=== PATIENT | male | born 1940 | race Caucasian/White ===

== ENCOUNTER 2016-08-29 07:40 | Inpatient (IN) | payer MEDICARE, BC ==
[~2016-08-29] VITALS: Ht 177.8 cm; Wt 90.5 kg
[2016-08-29] VITALS (12 sets, daily range): BP systolic 110–155; BP diastolic 56–80; PULSE 52–79; RESP 16–20; TEMP 97.6–98.5; O2SAT 95–100
[~2016-08-29 07:40] MED LIST: DABI150 PO; DOXA1 PO; GLIP5 PO; LISI-366 PO; METF1000 PO; METO50TA11 PO; PRAV40TA2 PO
[2016-08-29] MEDS ORDERED: SODIUM CHLOR 0.9% 1000 ML INJ 1,000 ML IV ONE (07:48)
--- NOTE | 2016-08-29 07:51 | PD ---
HPI Chief Complaint: Flank/Kidney Pain Time Seen by Provider: 07:48 Travel History International Travel<30 days: No Contact w/Intl Traveler<30days: No Traveled to known affect area: No History of Present Illness HPI ACUTE ONSET OF RT FLANK PAIN/RUQ PAIN, [place], 10/28, ASSOC WITH N/V, DENIES FEVER...RECENT PLACEMENT OF LLQ PERITONEAL DIALYSIS, TO START HOME DIALYSIS FAIRLY SOON, PER PT HE IS NO LONGER ACTIVELY ON PRADAXA, DENIES ANY HEMATURIA/ HEMATOCHEZIA/ NO DISCOLORATION TO STOOL PFSH Past Medical History Hx Anticoagulant Therapy: Yes (COUMADIN) Atrial Fibrillation: Yes Heart Rhythm Problems: Yes (AFIB RVR) Cancer: No Cardiovascular Problems: Yes (ABLATION, A. FIB, HTN, CHOL) High Cholesterol: Yes Chest Pain: No Congestive Heart Failure: No Cerebrovascular Accident: Yes Diabetes: Yes Endocrine: Yes Gastrointestinal Disorders: No Genitourinary: No Hypertension: Yes Immune Disorder: No Musculoskeletal: No Neurologic: Yes Psychiatric: No Reproductive: No Respiratory: No Migraines: No Seizures: No Thyroid Disease: No Past Surgical History Abdominal Surgery: No Cardiac Surgery: Yes (CABG 2 BYPASS 13 YEARS ) Coronary Artery Bypass Graft: Yes (double bypass) Ear Surgery: No Endocrine Surgery: No Eye Surgery: Yes (BILATERAL CATARACT ) Genitourinary Surgery: No Gynecologic Surgery: No Oral Surgery: No Pacemaker: No Thoracic Surgery: No Social History Alcohol Use: Yes (occas) Tobacco Use: Yes (cigars) Substance Use: No Allergies-Medications (Allergen,Severity, Reaction): Coded Allergies: No Known Allergies (Unverified , 08/29/16) Reported Meds & Prescriptions Reported Meds & Active Scripts Active Reported Doxazosin (Doxazosin Mesylate) 4 Mg Tab 4 Mg PO DAILY Pravastatin 40 Mg Tab 40 Mg PO DAILY Glipizide 5 Mg Tab 5 Mg PO BIDAC Take 30 minutes before a meal Metoprolol Tartrate 50 Mg Tab 50 Mg PO BID Review of Systems Except as stated in HPI: all other systems reviewed are Neg Genitourinary: Positive: Hematuria, Flank Pain Physical Exam Narrative GENERAL: SKIN: Warm and dry. HEAD: Atraumatic. Normocephalic. EYES: Pupils equal and round. No scleral icterus. No injection or drainage. ENT: No nasal bleeding or discharge. Mucous membranes pink and moist. NECK: Trachea midline. No JVD. CARDIOVASCULAR: Regular rate and rhythm. RESPIRATORY: No accessory muscle use. Clear to auscultation. Breath sounds equal bilaterally. GASTROINTESTINAL: Abdomen soft, RUQ/RLQ TTP MILDLY WITHOUT REBOUND/GUARDING/ RIGIDITY, nondistended. MUSCULOSKELETAL: Extremities without clubbing, cyanosis, or edema. No obvious deformities. NEUROLOGICAL: Awake and alert. No obvious cranial nerve deficits. Motor grossly within normal limits. Five out of 5 muscle strength in the arms and legs. Normal speech. PSYCHIATRIC: Appropriate mood and affect; insight and judgment normal. Data Data Last Documented VS Vital Signs Date Time Temp Pulse Resp B/P Pulse Ox O2 Delivery O2 Flow Rate FiO2 08/29/16 11:32 63 08/29/16 11:32 16 135/60 96 Room Air 08/29/16 07:44 97.6 Orders Complete Blood Count With Diff (08/29/16 07:48) Comprehensive Metabolic Panel (08/29/16 07:48) Urinalysis - C+S If Indicated (08/29/16 07:48) Ct Abd/Pel W/O Iv Contrast (08/29/16 07:48) Ecg Monitoring (08/29/16 07:48) Iv Access Insert/Monitor (08/29/16 07:48) Ketorolac Inj (Toradol Inj) (08/29/16 08:00) Ondansetron Inj (Zofran Inj) (08/29/16 08:00) Sodium Chloride 0.9% Flush (Ns Flush) (08/29/16 08:00) Sodium Chlor 0.9% 1000 Ml Inj (Ns 1000 M (08/29/16 07:48) Hydromorphone Pf Inj (Dilaudid Pf Inj) (08/29/16 08:00) Lipase (08/29/16 07:48) Prothrombin Time / Inr (Pt) (08/29/16 09:08) Act Partial Throm Time (Ptt) (08/29/16 09:08) Ct Abd/Pel W Iv Contrast(Rout) (08/29/16 09:08) Iodixanol 320 Inj (Rad Ct) (Visipaque 32 (08/29/16 09:50) ^ Lab Follow Up (08/29/16 10:27) Phytonadione Inj (Vitamin K Inj) (08/29/16 10:30) Prothrombin Complex Conc Inj (Kcentra In (08/29/16 11:00) Potassium, Serum (K) (08/29/16 13:39) Insulin Human Regular Inj (Novolin R Inj (08/29/16 10:45) Dextrose 50% In Jose (Vial) Inj (D50w (Vi (08/29/16 10:45) Sodium Bicarbonate 8.4% Inj (Sodium Bica (08/29/16 10:45) Albuterol Concentrated Neb (Albuterol Co (08/29/16 10:45) Act Partial Throm Time (Ptt) (08/29/16 12:00) Prothrombin Time / Inr (Pt) (08/29/16 12:00) Labs Laboratory Tests Test 08/29/16 08/29/16 08/29/16 08:07 08:45 10:27 White Blood Count 3.7 TH/MM3 Red Blood Count 3.02 MIL/MM3 Hemoglobin 9.0 GM/DL Hematocrit 27.7 % Mean Corpuscular Volume 91.8 FL Mean Corpuscular Hemoglobin 29.8 PG Mean Corpuscular Hemoglobin 32.5 % Concent Red Cell Distribution Width 17.2 % Platelet Count 78 TH/MM3 Mean Platelet Volume 8.7 FL Neutrophils (%) (Auto) 74.4 % Lymphocytes (%) (Auto) 13.2 % Monocytes (%) (Auto) 8.9 % Eosinophils (%) (Auto) 2.7 % Basophils (%) (Auto) 0.8 % Neutrophils # (Auto) 2.8 TH/MM3 Lymphocytes # (Auto) 0.5 TH/MM3 Monocytes # (Auto) 0.3 TH/MM3 Eosinophils # (Auto) 0.1 TH/MM3 Basophils # (Auto) 0.0 TH/MM3 CBC Comment AUTO DIFF Differential Comment AUTO DIFF CONFIRMED Platelet Estimate LOW Platelet Morphology Comment NORMAL Sodium Level 143 MEQ/L Potassium Level 5.6 MEQ/L Chloride Level 113 MEQ/L Carbon Dioxide Level 19.2 MEQ/L Anion Gap 11 MEQ/L Blood Urea Nitrogen 111 MG/DL Creatinine 4.40 MG/DL Estimat Glomerular Filtration 13 ML/MIN Rate Random Glucose 154 MG/DL Calcium Level 8.2 MG/DL Total Bilirubin 0.6 MG/DL Aspartate Amino Transf 39 U/L (AST/SGOT) Alanine Aminotransferase 31 U/L (ALT/SGPT) Alkaline Phosphatase 100 U/L Total Protein 6.0 GM/DL Albumin 2.8 GM/DL Lipase 496 U/L Prothrombin Time 27.7 SEC Prothromb Time International 2.4 RATIO Ratio Activated Partial 35.0 SEC Thromboplast Time Urine Collection Type CLEAN CATCH Urine Color YELLOW Urine Turbidity CLEAR Urine pH 5.5 Urine Specific [place] 1.021 Urine Protein 300 OR GREATER mg/dL Urine Glucose (UA) 100 mg/dL Urine Ketones NEG mg/dL Urine Occult Blood SMALL Urine Nitrite NEG Urine Bilirubin NEG Urine Leukocyte Esterase TRACE Urine RBC 0-3 /hpf Urine WBC 0-2 /hpf Urine Squamous Epithelial 0-5 /hpf Cells Microscopic Urinalysis Comment CULT NOT INDICATED Urine Collection Time 10:27 [facility] Medical Decision Making Medical Screen Exam Complete: Yes Emergency Medical Condition: Yes Medical Record Reviewed: Yes Differential Diagnosis PYELO VS UTI VS KIDNEY STONE V AAA VS GB DZ Narrative Course PATIENT'S CAT SCAN REVEALED AN ABNL RIGHT KIDNEY, POSSIBLE INTRACAPSULAR RENAL HEMORRHAGE? RADIOLOGIST REQUESTED CT WITH CONTRAST, ONE WAS ORDERED AND ALSO ADDED PI/INR/PTT STUDIES DESPITE FACT THAT PER PATIENT HE IS NO LONG ANTICOAGULATED TO SEE IF ITS RELATED. Critical Care Narrative CRITICAL CARE NOTE: With evaluation of the patient, labs, EKG, receipt of radiologic studies, administration of medications, reevaluation the patient and discussion of the patient with the admitting physicians, the total critical care time was [60] minutes. Time to perform other separately billable procedures was not included in the critical care time. Physician Communication Physician Communication D/W DR GREEN TO MAKE AWARE, HE WILL FOLLOW. D/W DR VICTORIA WHO ACCEPTS ADMISSION BUT [place] [facility] [place] Primary Impression: RT RENAL HEMORRHAGE Additional Impressions: S/P HYPERKALEMIA MEDICAL TREATMENT S/P COUMADIN REVERSAL Admitting Information Admitting Physician Requests: Admit Condition: Stable Philip Brewer MD Aug 29, 2016 07:51
[2016-08-29] MEDS ORDERED: GLIP5TAB8 PO (07:59)
[2016-08-29] MEDS ORDERED: METO50TA PO (07:59)
[2016-08-29] MEDS ORDERED: ONDANSETRON HCL 4 MG/2 ML VIAL IVP ONE (08:00)
[2016-08-29] MEDS ORDERED: PRAV40TA2 PO (08:00)
[2016-08-29] MEDS ORDERED: HYDROmorphone HCL PF 1 MG/ML VIAL IVS ONE (08:00)
[2016-08-29] MEDS ORDERED: SODIUM CHLORIDE 0.9% FLUSH 10 ML FLUSH IVF PRN (08:00)
[2016-08-29] MEDS ORDERED: DOXA1TAB34 PO (08:00)
[2016-08-29] MEDS ORDERED: KETOROLAC TROMETHAMINE 30 MG/ML (IVP) VIAL IVP ONE (08:00)
[2016-08-29 08:14] LABS: AUTOMATED NEUTROPHIL # 2.8 TH/MM3 (1.8-7.7); BASOPHIL % 0.8 % (0.0-2.0); EOSINOPHIL # 0.1 TH/MM3 (0-0.4); EOSINOPHIL % 2.7 % (0.0-4.0); HEMATOCRIT 27.7 % (39.0-51.0); LYMPH % 13.2 % (9.0-44.0); LYMPHOCYTE # 0.5 TH/MM3 (1.0-4.8); MEAN CELL VOLUME 91.8 FL (80.0-100.0); MEAN CORPUSCULAR HEMOGLOBIN 29.8 PG (27.0-34.0); MEAN CORPUSCULAR HGB CONC 32.5 % (32.0-36.0); MONO % 8.9 % (0.0-8.0); NEUT % 74.4 % (16.0-70.0); PLATELET COUNT 78 TH/MM3 (150-450); RED BLOOD COUNT 3.02 MIL/MM3 (4.50-5.90); RED CELL DISTRIBUTION WIDTH 17.2 % (11.6-17.2); WHITE BLOOD COUNT 3.7 TH/MM3 (4.0-11.0)
[2016-08-29 08:15] LABS: HEMO FLAGS AUTO DIFF
[2016-08-29 08:21] LABS: CHLORIDE 113 MEQ/L (98-107); POTASSIUM 5.6 MEQ/L (3.5-5.1); SODIUM (NA) 143 MEQ/L (136-145)
[2016-08-29 08:26] LABS: ANION GAP 11 MEQ/L (5-15); BICARBONATE 19.2 MEQ/L (21.0-32.0); BLOOD UREA NITROGEN 111 MG/DL (7-18)
[2016-08-29 08:29] LABS: ALT (GPT) 31 U/L (12-78); AST (GOT) 39 U/L (15-37); GLOMERULAR FILTRATION RATE 13 ML/MIN (>89)
[2016-08-29 08:31] LABS: TOTAL BILIRUBIN ADULT 0.6 MG/DL (0.2-1.0)
[2016-08-29 08:32] LABS: ALKALINE PHOSPHATASE 100 U/L (45-117)
[2016-08-29 08:52] LABS: PLATELET ESTIMATE SMEAR LOW (NORMAL); PLATELET MORPHOLOGY NORMAL (NORMAL); SCAN/DIFF AUTO DIFF CONFIRMED
--- NOTE | 2016-08-29 09:06 | RADRPT ---
EXAM DATE/TIME: 08/29/2016 08:29 [facility] COMPARISON: No previous studies available for comparison. INDICATIONS : Sudden onset severe right flank pain with no known injury. ORAL CONTRAST: No oral contrast ingested. RADIATION DOSE: 23.26 CTDIvol (mGy) MEDICAL HISTORY : Hypertension. Diabetes SURGICAL HISTORY : Peritoneal dialysis catheter placement approx. 1 month ago ENCOUNTER: Initial ACUITY: 1 day PAIN SCALE: 7/10 LOCATION: Right flank TECHNIQUE: Volumetric scanning of the abdomen and pelvis was performed. Using automated exposure control and ad justment of the mA and/or kV according to patient size, radiation dose was kept as low as reasonably achievable to obtain optimal diagnostic quality images. DICOM format image data is available electro nically for review and comparison. FINDINGS: The limited portion of lung base visualized demonstrate COPD changes but are otherwise clear. Imaging through the abdomen demonstrates a grossly abnormal appearance of the right kidney. The right kidney is enlarged with heterogeneous density throughout. There are inflammatory changes around the right kidney. The findings would suggest a large intracapsular renal hemorrhage. No stones are seen. There is no hydronephrosis. The appearance of the liver, spleen, pancreas and adrenal glands is within normal limits. Examination of the left kidney demonstrates multiple simple cysts. There is no hydronephrosis. The abdominal aorta is normal in caliber. There is no retroperitoneal adenopathy. The visualized loops of small and large bowel are unremarkable. Note is made of a pain cough catheter within the pelvis. There is no free fluid within the pelvis. No iliac or inguinal adenopathy is seen. The visualized bony structures are grossly intact. CONCLUSION: 1. Abnormal appearance of the right kidney. The exam would suggest a large intracapsular renal hemorr lauro with extensive inflammatory changes around the right kidney. Contrast enhanced imaging to exclud e active hemorrhage would be a benefit. 2. Incidental takeoff catheter in the pelvis. 3. Multiple simple cysts within the left kidney. Tristan Belcher MD on August 29, 2016 at 9:00 Board Certified Radiologist. This report was verified electronically.
[2016-08-29 09:32] LABS: INTERNATIONAL NORMALIZED RATIO 2.4 RATIO; PROTHROMBIN TIME - PATIENT 27.7 SEC (9.8-11.6)
[2016-08-29] MEDS ORDERED: IODIXANOL 320 MG/ML 10 ML VIAL (for Rad CT) IV ONE (09:50)
--- NOTE | 2016-08-29 10:10 | RADRPT ---
EXAM DATE/TIME: 08/29/2016 09:23 [facility] COMPARISON: CT ABDOMEN & PELVIS W/O CONTRAST, August 29, 2016, 8:29. INDICATIONS : Renal abnormality on previous unenhanced CT abdomen/pelvis. IV CONTRAST: 75 cc Visipaque (iodixanol) IV ORAL CONTRAST: No oral contrast ingested. RADIATION DOSE: 16.58 CTDIvol (mGy) MEDICAL HISTORY : Hypertension. Diabetes SURGICAL HISTORY : CABG Peritoneal dialysis catheter placement approx. 1 month ago ENCOUNTER: Initial ACUITY: 1 day PAIN SCALE: 7/10 LOCATION: Right flank TECHNIQUE: Volumetric scanning of the abdomen and pelvis was performed. Using automated exposure control and ad justment of the mA and/or kV according to patient size, radiation dose was kept as low as reasonably achievable to obtain optimal diagnostic quality images. DICOM format image data is available electro nically for review and comparison. FINDINGS: CT Abdomen: The right kidney is basically replaced with abnormal mixed densities areas probably exten sive hemorrhage with extensive infiltration of the perinephric fat planes and maximum AP diameter mauro sures 12.1 cm in size. There is contrast pulling in the right lower pole representing active extravas ation. The liver, spleen, pancreas, adrenals are unremarkable. There are multiple exophytic cyst comi ng off the left kidney the largest measures 3.9 cm in size. There is no evidence for any appreciable pathological adenopathy, free fluid, or bowel obstruction. Chronic vascular calcifications are prese nt involving the aorta, iliac arteries without any significant stenosis or aneurysmal dilatations for technique. CT pelvis: There is no evidence for mass, abscess formation, or any significant adenopathy within the pelvis. The prostate gland is inhomogeneous and measures 4.5 x 4.5 cm in AP and transverse diameters and nonspecific. There is slight fluid in the cul-de-sac elevated to Tenckhoff catheter. CONCLUSION: Normal renal tissue is not identified on the right side and the right kidney is basic ally replaced with mixed density material probably hemorrhage with active extravasation in the right lower pole and perinephric infiltration also mostly representing hemorrhage. It is very difficult to exclude underlying malignancy either as a solid mass or infiltrating malignancy at this time. Rogers Gunn MD on August 29, 2016 at 9:59 Board Certified Radiologist. This report was verified electronically.
[2016-08-29] MEDS ORDERED: PHYTONADIONE INJ 10 MG in SODIUM CHLORIDE 0.9% INJ 50 ML IV ONE (10:30)
[2016-08-29] MEDS ORDERED: DEXTROSE 50% IN WATER 50 ML VIAL(D50) IV PUSH ONE (10:45)
[2016-08-29] MEDS ORDERED: INSULIN HUMAN REGULAR 1,000 UNITS/10 ML VIAL IV PUSH ONE (10:45)
[2016-08-29] MEDS ORDERED: RESP: ALBUTEROL CONC 2.5 MG/0.5 ML NEB INH ONE (10:45)
[2016-08-29] MEDS ORDERED: SODIUM BICARBONATE 8.4% SOLN 50 MEQ/50 ML VIAL SLOW IVP ONE (10:45)
[2016-08-29 10:47] LABS: BLOOD, URINE SMALL (NEG); GLUCOSE,URINE 100 mg/dL (NEG); KETONE, URINE NEG (NEG); NITRITE,URINE NEG (NEG); PH, URINE 5.5 (5.0-8.5)
[2016-08-29 10:57] LABS: COMMENT (UR) CULT NOT INDICATED; CULTURE IF INDICATED CULT NOT INDICATED; METHOD OF COLLECTION CLEAN CATCH; RBC, URINE 0-3 /hpf (0-3); SQUAMOUS EPITHELIAL CELL URINE 0-5 /hpf (0-5); URINE COLOR YELLOW (YELLW/STRAW); WBC, URINE 0-2 /hpf (0-5)
[2016-08-29] MEDS ORDERED: PROTHROMBIN COMPLEX CONC INJ 2,000 UNITS in SYRINGE/BAG 1 EA IV ONE (11:00)
[2016-08-29] MEDS ORDERED: MAGNESIUM HYDROXIDE SUSP 30 ML CUP PO PRN (12:15)
[2016-08-29] MEDS ORDERED: BISACODYL 10 MG SUPP RECTAL PRN (12:15)
[2016-08-29] MEDS ORDERED: ONDANSETRON HCL 4 MG/2 ML VIAL IVP PRN (12:15)
[2016-08-29] MEDS ORDERED: LACTULOSE SYRUP 20 GM/30 ML CUP PO PRN (12:15)
[2016-08-29] MEDS ORDERED: SODIUM CHLORIDE 0.9% FLUSH 10 ML FLUSH IV FLUSH PRN ×2 (12:15→20:30)
[2016-08-29] MEDS ORDERED: ACETAMINOPHEN 325 MG TAB PO PRN ×2 (12:15→20:30)
[2016-08-29] MEDS ORDERED: SENNOSIDES 8.6 MG TAB PO PRN (12:15)
--- NOTE | 2016-08-29 12:22 | HHI.HP ---
[facility] Azam Stanley MD Admission Diagnosis RT RENAL HEMORRHAGE, S/P COUMADIN REVERSAL, S/P HYPERKALEMIA TREAT Diagnoses: Chief Complaint: right flank pain Travel History International Travel<30 Days: No Contact w/Intl Traveler <30 Da: No Traveled to Known Affected Are: No History of Present Illness 76 yo male with PMH of HTN, Afib on coumadin. HLD came to the ED for evaluation of right flank pain , sharp radiating to hid buttocks getting worse . 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 Movement and deep inspiration worsened the pain .Pain is improved with meds given in the ED. Denies any cp, sob, palpitations , n/v/d/c associated. No hematuria , no urinary complaints. 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 He has PD catheter in his left lower. No overt bleeding. Review of Systems Except as stated in HPI: all other systems reviewed are Neg Past Family Social History Past Medical History Hypertension Diabetes Hyperlipidemia CAD-status post CABG 15 years ago Atrial fibrillation-status post Maze procedure ~16 years ago. Had at least 6 times of cardioversion, and rhythm control medications prior to this. On coumadin as anticoagulation. ESRD in the process to [place] [facility] follows with Dr Villa BPH Past Surgical History CABG Maze procedure Coronary angiograms Cataract surgery Reported Medications Reported Meds & Active Scripts Active Reported Doxazosin (Doxazosin Mesylate) 4 Mg Tab 4 Mg PO DAILY Pravastatin 40 Mg Tab 40 Mg PO DAILY Glipizide 5 Mg Tab 5 Mg PO BIDAC Take 30 minutes before a meal Metoprolol Tartrate 50 Mg Tab 50 Mg PO BID Allergies: Coded Allergies: No Known Allergies (Unverified , 08/29/16) Family History Both parents had CHF. Heart problems runs in his family Social History Denies smoking cigarettes/drug abuse/alcohol abuse. Smoke cigars occasionally however quit 2 month ago. Physical Exam Vital Signs Vital Signs Date Time Temp Pulse Resp B/P Pulse Ox O2 Delivery O2 Flow Rate FiO2 08/29/16 11:32 63 08/29/16 11:32 63 16 135/60 96 Room Air 08/29/16 10:03 60 16 115/56 100 Room Air 08/29/16 10:03 16 08/29/16 08:50 55 16 110/62 96 Room Air 08/29/16 08:50 55 08/29/16 07:50 60 16 08/29/16 07:44 97.6 57 16 155/68 98 Physical Exam GENERAL: This is a very pleasant 76 yo male, well-nourished, well-developed patient, in no apparent distress. SKIN: No rashes, ecchymoses or lesions. Cool and dry. HEAD: Atraumatic. Normocephalic. No temporal or scalp tenderness. EYES: Pupils equal round and reactive. Extraocular motions intact. No scleral icterus. No injection or drainage. ENT: Nose without bleeding, purulent drainage or septal hematoma. Throat without erythema, tonsillar hypertrophy or exudate. Uvula midline. Airway patent. NECK: Trachea midline. No JVD or lymphadenopathy. Supple, nontender, no meningeal signs. CARDIOVASCULAR: Regular rate and rhythm without murmurs, gallops, or rubs. RESPIRATORY: Clear to auscultation. Breath sounds equal bilaterally. No wheezes , rales, or rhonchi. GASTROINTESTINAL: Abdomen soft, tender right midlateral abdomen with palpation no rebound. Tenderness right flank. Abdomen is nondistended. No guarding. MUSCULOSKELETAL: Extremities without clubbing, cyanosis, or edema. No joint tenderness, effusion, or edema noted. No calf tenderness. Negative Homans sign bilaterally. NEUROLOGICAL: Awake and alert. Cranial nerves II through XII intact. Motor and sensory grossly within normal limits. Five out of 5 muscle strength in all muscle groups. Normal speech. Laboratory Laboratory Tests Test 08/29/16 08/29/16 08/29/16 08:07 08:45 10:27 White Blood Count 3.7 Red Blood Count 3.02 Hemoglobin 9.0 Hematocrit 27.7 Mean Corpuscular Volume 91.8 Mean Corpuscular Hemoglobin 29.8 Mean Corpuscular Hemoglobin 32.5 Concent Red Cell Distribution Width 17.2 Platelet Count 78 Mean Platelet Volume 8.7 Neutrophils (%) (Auto) 74.4 Lymphocytes (%) (Auto) 13.2 Monocytes (%) (Auto) 8.9 Eosinophils (%) (Auto) 2.7 Basophils (%) (Auto) 0.8 Neutrophils # (Auto) 2.8 Lymphocytes # (Auto) 0.5 Monocytes # (Auto) 0.3 Eosinophils # (Auto) 0.1 Basophils # (Auto) 0.0 CBC Comment AUTO DIFF Differential Comment AUTO DIFF CONFIRMED Platelet Estimate LOW Platelet Morphology Comment NORMAL Sodium Level 143 Potassium Level 5.6 Chloride Level 113 Carbon Dioxide Level 19.2 Anion Gap 11 Blood Urea Nitrogen 111 Creatinine 4.40 Estimat Glomerular Filtration 13 Rate Random Glucose 154 Calcium Level 8.2 Total Bilirubin 0.6 Aspartate Amino Transf 39 (AST/SGOT) Alanine Aminotransferase 31 (ALT/SGPT) Alkaline Phosphatase 100 Total Protein 6.0 Albumin 2.8 Lipase 496 Prothrombin Time 27.7 Prothromb Time International 2.4 Ratio Activated Partial 35.0 Thromboplast Time Urine Collection Type CLEAN CATCH Urine Color YELLOW Urine Turbidity CLEAR Urine pH 5.5 Urine Specific [place] 1.021 Urine Protein 300 OR GREATER Urine Glucose (UA) 100 Urine Ketones NEG Urine Occult Blood SMALL Urine Nitrite NEG Urine Bilirubin NEG Urine Leukocyte Esterase TRACE Urine RBC 0-3 Urine WBC 0-2 Urine Squamous Epithelial 0-5 Cells Microscopic Urinalysis Comment CULT NOT INDICATED Urine Collection Time 10:27 Result Diagram: 08/29/16 0807 08/29/16 0807 Imaging Last Impressions Abdomen/Pelvis CT 08/29/16 0908 Signed Impressions: Service Date/Time: Monday, August 29, 2016 09:23 - CONCLUSION: Normal renal tissue is not identified on the right side and the right kidney is basically replaced with mixed density material probably hemorrhage with active extravasation in the right lower pole and perinephric infiltration also mostly representing hemorrhage. It is very difficult to exclude underlying malignancy either as a solid mass or infiltrating malignancy at this time. Rogers Gunn MD Assessment and Plan Assessment and Plan 76 yo male with Right flank pain 2/[address] right kidney hemorrhage encapsulated. CT with contrast reviewed and findings discussed with ED physician : Normal renal tissue is not identified on the right side and the right kidney is basically replaced with mixed density material probably hemorrhage with active extravasation in the right lower pole and perinephric infiltration also mostly representing hemorrhage. It is very difficult to exclude underlying malignancy either as a solid mass or infiltrating malignancy at this time. Atrial fibrillation-status post Maze procedure ~16 years ago. Had at least 6 times of cardioversion, and rhythm control medications prior to this. On coumadin as anticoagulation. Patient took coumadin on the day of admission. Hold coumadin. Received vit K and prothrombin Monitor INR. Dr Villalobos was consulted urology Will have patient admitted to [facility] as patient might deteriorate ESRD in the process to get PD started follows with Dr Allen mei. Will consult Dr Allen mei. Patient has PD placed but is intraining for PD at this time. Hypertension,Diabetes, Hyperlipidemia, CAD-status post CABG 15 years ago, BPH. Stable continue home meds as appropriate. DVT ppx scd/teds. CI chemo ppx as patient with renal hematoma at this time. Discussed Condition With patient, nurse, ED physician Physician Certification 2 Midnight Certification Type: Admission for Inpatient Services Order for Inpatient Services The services are ordered in accordance with Medicare regulations or non- Medicare payer requirements, as applicable. In the case of services not specified as inpatient-only, they are appropriately provided as inpatient services in accordance with the 2-midnight benchmark. Estimated LOS (days): 3 days is the estimated time the patient will need to remain in the hospital, assuming treatment plan goals are met and no additional complications. Post-Hospital Plan: Not yet determined Aminah Wild MD Aug 29, 2016 12:22
[2016-08-29] MEDS ORDERED: hydrALAZINE HCL 10 MG TAB PO PRN (12:30)
[2016-08-29] MEDS ORDERED: hydrALAZINE HCL 20 MG/ML VIAL IV PUSH PRN (12:30)
[2016-08-29 12:32] LABS: APTT (PATIENT) 29.3 SEC (24.3-30.1); INTERNATIONAL NORMALIZED RATIO 1.3 RATIO; PROTHROMBIN TIME - PATIENT 15.1 SEC (9.8-11.6)
[2016-08-29] MEDS ORDERED: HYDROmorphone HCL PF 1 MG/ML VIAL IV PUSH PRN ×2 (14:30)
[2016-08-29] MEDS ORDERED: ACETAMINOPHEN/HYDROcodone 325 MG/5 MG TAB PO PRN (14:30)
--- NOTE | 2016-08-29 19:43 | PD.CONS ---
HPI Service Nephrology Consult Requested By Dr. Wild Reason for Consult ESRD Primary Care Physician Azam Stanley MD History of Present Illness 76-year-old of white male with end-stage renal disease, diabetes, hypertension, coronary artery disease status post CABG who had been admitted as he was having increasing right flank pain a CT suggested hemorrhage on the right side a second CT with contrast the showed active hemorrhage in the right kidney lower pole and possibility of a mass urology has been consulted. Patient states that he has been getting trained to do peritoneal dialysis. She denies any chest pain shortness of breath he states his urine output has declined today. He follows with Dr. Villa. Review of Systems Constitutional: COMPLAINS OF: Fatigue Gastrointestinal: COMPLAINS OF: Abdominal pain Past Family Social History Allergies: Coded Allergies: No Known Allergies (Unverified , 08/29/16) Past Medical History Hypertension Diabetes Hyperlipidemia CAD-status post CABG 15 years ago Atrial fibrillation-status post Maze procedure ~16 years ago. Had at least 6 times of cardioversion, and rhythm control medications prior to this. On Coumadin as anticoagulation. ESRD in the process to do PD follows with Dr Villa BPH Past Surgical History Tenckhoff catheter CABG Maze procedure Coronary angiograms Cataract surgery Reported Medications Reported Meds & Active Scripts Active Reported Doxazosin (Doxazosin Mesylate) 4 Mg Tab 4 Mg PO DAILY Pravastatin 40 Mg Tab 40 Mg PO DAILY Glipizide 5 Mg Tab 5 Mg PO BIDAC Take 30 minutes before a meal Metoprolol Tartrate 50 Mg Tab 50 Mg PO BID Active Ordered Medications Current Medications Medications (Trade) Dose Ordered Sig/Yamilet Route Start Time Stop Time Status Last Admin (NS Flush) 2 ml UNSCH PRN IV FLUSH 08/29/16 12:15 (NS Flush) 2 ml BID IV FLUSH 08/29/16 21:00 (Tylenol) 650 mg Q4H PRN PO 08/29/16 12:15 (Zofran Inj) 4 mg Q6H PRN IVP 08/29/16 12:15 (Restoril) 15 mg HS PRN PO 08/29/16 12:15 (Jennifer-Colace) 1 tab BID PO 08/29/16 21:00 (Milk Of Magnesia Liq) 30 ml Q12H PRN PO 08/29/16 12:15 (Senokot) 17.2 mg Q12H PRN PO 08/29/16 12:15 (Dulcolax Supp) 10 mg DAILY PRN RECTAL 08/29/16 12:15 (Lactulose Liq) 30 ml DAILY PRN PO 08/29/16 12:15 (Cardura) 4 mg DAILY PO 08/30/16 09:00 (Lopressor) 50 mg BID PO 08/29/16 21:00 (Pravachol) 40 mg DAILY PO 08/30/16 09:00 (Apresoline) 10 mg Q6HR PRN PO 08/29/16 12:30 (Apresoline Inj) 20 mg Q4H PRN IV PUSH 08/29/16 12:30 (Dilaudid Pf Inj) 0.5 mg Q4H PRN IV PUSH 08/29/16 14:30 (Dilaudid Pf Inj) 1 mg Q4H PRN IV PUSH 08/29/16 14:30 ([place] 5-325 Mg) 1 tab Q4H PRN PO 08/29/16 14:30 Family History Noncontributory Social History Denies smoking or alcohol Physical Exam Vital Signs Vital Signs Date Time Temp Pulse Resp B/P Pulse Ox O2 Delivery O2 Flow Rate FiO2 08/29/16 17:43 97.8 69 18 144/71 95 08/29/16 15:59 79 16 142/70 100 Room Air 08/29/16 13:36 68 16 148/70 100 Room Air 08/29/16 12:27 68 16 139/65 100 Room Air 08/29/16 11:32 63 08/29/16 11:32 63 16 135/60 96 Room Air 08/29/16 10:03 60 16 115/56 100 Room Air 08/29/16 10:03 16 08/29/16 08:50 55 16 110/62 96 Room Air 08/29/16 08:50 55 08/29/16 07:50 60 16 08/29/16 07:44 97.6 57 16 155/68 98 Physical Exam GENERAL: Well-nourished, well-developed patient. SKIN: Warm and dry. HEAD: Normocephalic. EYES: No scleral icterus. No injection or drainage. NECK: Supple, trachea midline. No JVD or lymphadenopathy. CARDIOVASCULAR: Irregularly irregular RESPIRATORY: Breath sounds equal bilaterally. No accessory muscle use. GASTROINTESTINAL: Abdomen soft, non-tender, nondistended. EXTREMITIES: No cyanosis, or edema. NEUROLOGICAL: Awake, alert, and oriented x 3. Non-focal. Laboratory Laboratory Tests Test 08/29/16 08/29/16 08/29/16 08/29/16 08:07 08:45 10:27 12:00 White Blood Count 3.7 Red Blood Count 3.02 Hemoglobin 9.0 Hematocrit 27.7 Mean Corpuscular Volume 91.8 Mean Corpuscular Hemoglobin 29.8 Mean Corpuscular Hemoglobin 32.5 Concent Red Cell Distribution Width 17.2 Platelet Count 78 Mean Platelet Volume 8.7 Neutrophils (%) (Auto) 74.4 Lymphocytes (%) (Auto) 13.2 Monocytes (%) (Auto) 8.9 Eosinophils (%) (Auto) 2.7 Basophils (%) (Auto) 0.8 Neutrophils # (Auto) 2.8 Lymphocytes # (Auto) 0.5 Monocytes # (Auto) 0.3 Eosinophils # (Auto) 0.1 Basophils # (Auto) 0.0 CBC Comment AUTO DIFF Differential Comment AUTO DIFF CONFIRMED Platelet Estimate LOW Platelet Morphology Comment NORMAL Sodium Level 143 Potassium Level 5.6 Chloride Level 113 Carbon Dioxide Level 19.2 Anion Gap 11 Blood Urea Nitrogen 111 Creatinine 4.40 Estimat Glomerular Filtration 13 Rate Random Glucose 154 Calcium Level 8.2 Total Bilirubin 0.6 Aspartate Amino Transf 39 (AST/SGOT) Alanine Aminotransferase 31 (ALT/SGPT) Alkaline Phosphatase 100 Total Protein 6.0 Albumin 2.8 Lipase 496 Prothrombin Time 27.7 15.1 Prothromb Time International 2.4 1.3 Ratio Activated Partial 35.0 29.3 Thromboplast Time Urine Collection Type CLEAN CATCH Urine Color YELLOW Urine Turbidity CLEAR Urine pH 5.5 Urine Specific [place] 1.021 Urine Protein 300 OR GREATER Urine Glucose (UA) 100 Urine Ketones NEG Urine Occult Blood SMALL Urine Nitrite NEG Urine Bilirubin NEG Urine Leukocyte Esterase TRACE Urine RBC 0-3 Urine WBC 0-2 Urine Squamous Epithelial 0-5 Cells Microscopic Urinalysis Comment CULT NOT INDICATED Urine Collection Time 10:27 Test 08/29/16 14:00 Potassium Level 5.1 Result Diagram: 08/29/16 0807 08/29/16 1400 Imaging Last Impressions Abdomen/Pelvis CT 08/29/16 0908 Signed Impressions: Service Date/Time: Monday, August 29, 2016 09:23 - CONCLUSION: Normal renal tissue is not identified on the right side and the right kidney is basically replaced with mixed density material probably hemorrhage with active extravasation in the right lower pole and perinephric infiltration also mostly representing hemorrhage. It is very difficult to exclude underlying malignancy either as a solid mass or infiltrating malignancy at this time. Rogers Gunn MD Assessment and Plan Problem List: (1) ESRD (end stage renal disease) Plan: Patient just started training on peritoneal dialysis however he is having hemorrhage in the right kidney and do not need to peritoneal dialysis immediately, the potassium has improved to 5.1 he did receive IV contrast Follow renal functions If he needs dialysis dependent he will need a Vas-Cath placement and hemodialysis Currently with hemorrhage in the right kidney he is unstable for peritoneal dialysis (2) Hemorrhage of right kidney Plan: Patient is referred to urology for possible surgical intervention I tried to call Dr. Guzman medical team informed about possible embolization next Called Urology Dr. Villalobos suggest embolization of right kidney I need to co ordinate HD in am check CBC (3) Afib Plan: He was on Coumadin which is being held (4) DM (diabetes mellitus) Plan: Continue to monitor (5) HTN (hypertension) Plan: Monitor blood pressure Darlene Castillo MD Aug 29, 2016 19:43
[2016-08-29] MEDS ORDERED: SODIUM CHLOR 0.9% 1000 ML INJ 1,000 ML IV PRN ×2 (20:16)
--- NOTE | 2016-08-29 20:29 | PD.CONS ---
HPI Service Urology Consult Requested By Primary Care Physician Azam Stanley MD Diagnosis: History of Present Illness 76yo male with history of DM, ESRD on peritoneal dialysis as well as Afib on coumadin admitted due to right flank pain and identification of significant right renal bleed and hematoma. Patient reports he had severe sudden onset of right flank pain worsened with deep inspiration and radiating to the right hip. The pain was persistent and sharp, which brought him to the ED. CT scan identified a large right renal hematoma with concern for active bleed. INR levels were in the 2.4 range. Patient appeared well, no hematuria, minimal urine production. Cr over 4 as baseline. Currently without fevers, chills, N/V. Review of Systems ROS Limitations: Clinical Condition Constitutional: DENIES: Fever Endocrine: DENIES: Heat/cold intolerance Eyes: DENIES: Blurred vision Ears, nose, mouth, throat: DENIES: Hearing loss Respiratory: DENIES: Apneas, Cough Cardiovascular: DENIES: Chest pain Gastrointestinal: COMPLAINS OF: Abdominal pain, DENIES: Nausea, Vomiting Genitourinary: DENIES: Hematuria Musculoskeletal: COMPLAINS OF: Joint pain, Back pain Integumentary: DENIES: Abnormal pigmentation Hematologic/lymphatic: DENIES: Bruising Neurologic: DENIES: Abnormal gait, Headache Psychiatric: DENIES: Anxiety Except as stated in HPI: all other systems reviewed are Neg Past Family Social History Past Medical History Hypertension Diabetes Hyperlipidemia CAD-status post CABG 15 years ago Atrial fibrillation-status post Maze procedure ~16 years ago. Had at least 6 times of cardioversion, and rhythm control medications prior to this. On coumadin as anticoagulation. ESRD in the process to [place] PD follows with Dr Villa BPH Past Surgical History CABG Maze procedure Coronary angiograms Cataract surgery Reported Medications Reported Meds & Active Scripts Active Reported Doxazosin (Doxazosin Mesylate) 4 Mg Tab 4 Mg PO DAILY Pravastatin 40 Mg Tab 40 Mg PO DAILY Glipizide 5 Mg Tab 5 Mg PO BIDAC Take 30 minutes before a meal Metoprolol Tartrate 50 Mg Tab 50 Mg PO BID Allergies: Coded Allergies: No Known Allergies (Unverified , 08/29/16) Active Ordered Medications Current Medications Medications (Trade) Dose Ordered Sig/Yamilet Route Start Time Stop Time Status Last Admin (NS Flush) 2 ml UNSCH PRN IV FLUSH 08/29/16 12:15 (NS Flush) 2 ml BID IV FLUSH 08/29/16 21:00 08/30/16 08:56 (Tylenol) 650 mg Q4H PRN PO 08/29/16 12:15 (Zofran Inj) 4 mg Q6H PRN IVP 08/29/16 12:15 (Restoril) 15 mg HS PRN PO 08/29/16 12:15 (Jennifer-Colace) 1 tab BID PO 08/29/16 21:00 08/30/16 08:48 (Milk Of Magnesia Liq) 30 ml Q12H PRN PO 08/29/16 12:15 (Senokot) 17.2 mg Q12H PRN PO 08/29/16 12:15 (Dulcolax Supp) 10 mg DAILY PRN RECTAL 08/29/16 12:15 (Lactulose Liq) 30 ml DAILY PRN PO 08/29/16 12:15 (Cardura) 4 mg DAILY PO 08/30/16 09:00 08/30/16 08:48 (Lopressor) 50 mg BID PO 08/29/16 21:00 08/30/16 08:48 (Pravachol) 40 mg DAILY PO 08/30/16 09:00 08/30/16 08:48 (Apresoline) 10 mg Q6HR PRN PO 08/29/16 12:30 (Apresoline Inj) 20 mg Q4H PRN IV PUSH 08/29/16 12:30 (Dilaudid Pf Inj) 0.5 mg Q4H PRN IV PUSH 08/29/16 14:30 (Dilaudid Pf Inj) 1 mg Q4H PRN IV PUSH 08/29/16 14:30 Acetaminophen/ Hydrocodone Bitart 1 tab 1 tab Q4H PRN PO 08/29/16 14:30 Sodium Chloride 1,000 ml @ 0 mls/hr Q0M PRN IV 08/29/16 20:16 Sodium Chloride 1,000 ml @ 200 mls/hr Q5H PRN IV 08/29/16 20:16 (NS 1000 ml Inj) 1,000 ml @ 0 mls/hr Q0M PRN IV 08/29/16 20:16 (Mannitol Inj) 12.5 gm UNSCH PRN IV 08/29/16 20:30 (Albumin 25% Inj) 25 gm UNSCH PRN IV 08/29/16 20:30 (NS Flush) 5 ml UNSCH PRN IV FLUSH 08/29/16 20:30 (Heparin Inj) UNSCH PRN .XX 08/29/16 20:30 (Gentamicin (Dialysis) Inj) 20 mg UNSCH PRN IV 08/29/16 20:30 (Zofran Inj) 4 mg UNSCH PRN IV 08/29/16 20:30 (Tylenol) 650 mg UNSCH PRN PO 08/29/16 20:30 (Benadryl) 25 mg UNSCH PRN PO 08/29/16 20:30 (Nitrostat Sl) 0.4 mg UNSCH PRN SL 08/29/16 20:30 (Catapres) 0.1 mg UNSCH PRN PO 08/29/16 20:30 (Epogen Inj) 10,000 units UNSCH PRN IV 08/29/16 20:30 (Gelfoam 12 Mm/7 Mm Top) 1 foam UNSCH PRN TOP 08/29/16 20:30 Family History Both parents had CHF. Heart problems runs in his family Social History Denies smoking cigarettes/drug abuse/alcohol abuse. Smoke cigars occasionally however quit 2 month ago. Physical Exam Vital Signs Date Time Temp Pulse Resp B/P Pulse Ox O2 Delivery O2 Flow Rate FiO2 08/29/16 17:43 97.8 69 18 144/71 95 08/29/16 15:59 79 16 142/70 100 Room Air 08/29/16 13:36 68 16 148/70 100 Room Air 08/29/16 12:27 68 16 139/65 100 Room Air 08/29/16 11:32 63 08/29/16 11:32 63 16 135/60 96 Room Air 08/29/16 10:03 60 16 115/56 100 Room Air 08/29/16 10:03 16 08/29/16 08:50 55 16 110/62 96 Room Air 08/29/16 08:50 55 08/29/16 07:50 60 16 08/29/16 07:44 97.6 57 16 155/68 98 Physical Exam GENERAL: This is a well-nourished, well-developed patient, in no apparent distress. SKIN: No rashes, ecchymoses or lesions. Cool and dry. HEAD: Atraumatic. Normocephalic. EYES: Extraocular motions intact. No scleral icterus. No injection or drainage. ENT: Nose without bleeding, purulent drainage Airway patent. NECK: Trachea midline. No JVD or lymphadenopathy. CARDIOVASCULAR: Normal pulses, extremities well perfused RESPIRATORY: nonlabored, equal chest rise GASTROINTESTINAL: Abdomen soft, RUQ tenderness, no flank ecchymosis MUSCULOSKELETAL: Extremities without clubbing, cyanosis, or edema. NEUROLOGICAL: Awake and alert. Motor and sensory grossly within normal limits. Normal speech. Lab results reviewed: Yes Laboratory Tests Test 08/29/16 08/29/16 08/29/16 08/29/16 08:07 08:45 10:27 12:00 White Blood Count 3.7 Red Blood Count 3.02 Hemoglobin 9.0 Hematocrit 27.7 Mean Corpuscular Volume 91.8 Mean Corpuscular Hemoglobin 29.8 Mean Corpuscular Hemoglobin 32.5 Concent Red Cell Distribution Width 17.2 Platelet Count 78 Mean Platelet Volume 8.7 Neutrophils (%) (Auto) 74.4 Lymphocytes (%) (Auto) 13.2 Monocytes (%) (Auto) 8.9 Eosinophils (%) (Auto) 2.7 Basophils (%) (Auto) 0.8 Neutrophils # (Auto) 2.8 Lymphocytes # (Auto) 0.5 Monocytes # (Auto) 0.3 Eosinophils # (Auto) 0.1 Basophils # (Auto) 0.0 CBC Comment AUTO DIFF Differential Comment AUTO DIFF CONFIRMED Platelet Estimate LOW Platelet Morphology Comment NORMAL Sodium Level 143 Potassium Level 5.6 Chloride Level 113 Carbon Dioxide Level 19.2 Anion Gap 11 Blood Urea Nitrogen 111 Creatinine 4.40 Estimat Glomerular Filtration 13 Rate Random Glucose 154 Calcium Level 8.2 Total Bilirubin 0.6 Aspartate Amino Transf 39 (AST/SGOT) Alanine Aminotransferase 31 (ALT/SGPT) Alkaline Phosphatase 100 Total Protein 6.0 Albumin 2.8 Lipase 496 Prothrombin Time 27.7 15.1 Prothromb Time International 2.4 1.3 Ratio Activated Partial 35.0 29.3 Thromboplast Time Urine Collection Type CLEAN CATCH Urine Color YELLOW Urine Turbidity CLEAR Urine pH 5.5 Urine Specific [place] 1.021 Urine Protein 300 OR GREATER Urine Glucose (UA) 100 Urine Ketones NEG Urine Occult Blood SMALL Urine Nitrite NEG Urine Bilirubin NEG Urine Leukocyte Esterase TRACE Urine RBC 0-3 Urine WBC 0-2 Urine Squamous Epithelial 0-5 Cells Microscopic Urinalysis Comment CULT NOT INDICATED Urine Collection Time 10:27 Test 08/29/16 14:00 Potassium Level 5.1 Result Diagram: 08/29/16 0807 08/29/16 1400 Personally reviewed images: Yes Imaging Last Impressions Abdomen/Pelvis CT 08/29/16 0908 Signed Impressions: Service Date/Time: Monday, August 29, 2016 09:23 - CONCLUSION: Normal renal tissue is not identified on the right side and the right kidney is basically replaced with mixed density material probably hemorrhage with active extravasation in the right lower pole and perinephric infiltration also mostly representing hemorrhage. It is very difficult to exclude underlying malignancy either as a solid mass or infiltrating malignancy at this time. Rogers Gunn MD Assessment and Plan Assessment and Plan Large right renal hematoma with no identifiable normal renal tissue. Evidence of active extravasation noted of this right kidney. -Patient is currently stable, Hgb 9 -Recommend IR embolization of the right kidney -No open surgical intervention as this is high risk and could lead to further complications, bleeding, and significant co-morbidities and mortality -Patient may followup with Dr. Walker in clinic after discharge as he has been seen by him in the past Aldo Villalobos MD Aug 29, 2016 20:29
[2016-08-29] MEDS ORDERED: NITROGLYCERIN 0.4 MG SL 25 TABS/BTL SL PRN (20:30)
[2016-08-29] MEDS ORDERED: MANNITOL 12.5 GM/50 ML VIAL IV PRN (20:30)
[2016-08-29] MEDS ORDERED: ONDANSETRON HCL 4 MG/2 ML VIAL IV PRN (20:30)
[2016-08-29] MEDS ORDERED: cloNIDine HCL 0.1 MG TAB PO PRN (20:30)
[2016-08-29] MEDS ORDERED: ALBUMIN HUMAN 25% 25 GM/100 ML BAGP IV PRN (20:30)
[2016-08-29] MEDS ORDERED: GELATIN 12 MM/7 MM FOAM TOP PRN (20:30)
[2016-08-29] MEDS ORDERED: diphenhydrAMINE HCL 25 MG CAP PO PRN (20:30)
[2016-08-29] MEDS: METOPROLOL TARTRATE 50 MG TAB PO SCH (20:59)
[2016-08-29 21:00] LABS: AUTOMATED NEUTROPHIL # 4.4 TH/MM3 (1.8-7.7); BASOPHIL % 0.2 % (0.0-2.0); EOSINOPHIL % 0.1 % (0.0-4.0); HEMATOCRIT 22.7 % (39.0-51.0); LYMPH % 6.7 % (9.0-44.0); LYMPHOCYTE # 0.4 TH/MM3 (1.0-4.8); MEAN CELL VOLUME 90.5 FL (80.0-100.0); MEAN CORPUSCULAR HEMOGLOBIN 29.9 PG (27.0-34.0); MEAN CORPUSCULAR HGB CONC 33.1 % (32.0-36.0); MONO % 9.4 % (0.0-8.0); NEUT % 83.6 % (16.0-70.0); PLATELET COUNT 63 TH/MM3 (150-450); RED BLOOD COUNT 2.51 MIL/MM3 (4.50-5.90); RED CELL DISTRIBUTION WIDTH 16.6 % (11.6-17.2); WHITE BLOOD COUNT 5.3 TH/MM3 (4.0-11.0)
[2016-08-29] MEDS: DOCUSATE SODIUM 50 MG/SENNA 8.6 MG TAB PO SCH (21:00)
[2016-08-29] MEDS: SODIUM CHLORIDE 0.9% FLUSH 10 ML FLUSH IV FLUSH SCH (21:00)
[2016-08-29 21:01] LABS: HEMO FLAGS AUTO DIFF
[2016-08-29 21:52] LABS: ACANTHOCYTES OCC (NORMAL); KERATOCYTES OCC (NORMAL); OVALOCYTES 1+ (NORMAL); PLATELET ESTIMATE SMEAR LOW (NORMAL); PLATELET MORPHOLOGY NORMAL (NORMAL); SCAN/DIFF AUTO DIFF CONFIRMED
[2016-08-30] VITALS (16 sets, daily range): BP systolic 123–176; BP diastolic 66–91; PULSE 62–109; RESP 14–20; TEMP 97.6–99.3; O2SAT 90–98
[2016-08-30 03:53] LABS: BASOPHIL % 0.3 % (0.0-2.0); EOSINOPHIL % 0.5 % (0.0-4.0); HEMATOCRIT 21.5 % (39.0-51.0); LYMPH % 9.4 % (9.0-44.0); LYMPHOCYTE # 0.5 TH/MM3 (1.0-4.8); MEAN CELL VOLUME 91.1 FL (80.0-100.0); MEAN CORPUSCULAR HEMOGLOBIN 29.6 PG (27.0-34.0); MEAN CORPUSCULAR HGB CONC 32.5 % (32.0-36.0); MONO % 10.6 % (0.0-8.0); NEUT % 79.2 % (16.0-70.0); PLATELET COUNT 72 TH/MM3 (150-450); RED BLOOD COUNT 2.37 MIL/MM3 (4.50-5.90); RED CELL DISTRIBUTION WIDTH 16.5 % (11.6-17.2)
[2016-08-30 03:58] LABS: HEMO FLAGS AUTO DIFF
[2016-08-30 04:07] LABS: INTERNATIONAL NORMALIZED RATIO 1.3 RATIO; PROTHROMBIN TIME - PATIENT 14.6 SEC (9.8-11.6)
[2016-08-30 04:11] LABS: ANION GAP 8 MEQ/L (5-15); AST (GOT) 27 U/L (15-37); BICARBONATE 20.8 MEQ/L (21.0-32.0); BLOOD UREA NITROGEN 114 MG/DL (7-18); CHLORIDE 113 MEQ/L (98-107); GLOMERULAR FILTRATION RATE 12 ML/MIN (>89); POTASSIUM 5.3 MEQ/L (3.5-5.1); SODIUM (NA) 142 MEQ/L (136-145)
[2016-08-30 04:13] LABS: ALT (GPT) 27 U/L (12-78)
[2016-08-30 04:15] LABS: ALKALINE PHOSPHATASE 90 U/L (45-117); TOTAL BILIRUBIN ADULT 0.7 MG/DL (0.2-1.0)
[2016-08-30 05:18] LABS: ACANTHOCYTES OCC (NORMAL); OVALOCYTES 1+ (NORMAL); PLATELET ESTIMATE SMEAR LOW (NORMAL); PLATELET MORPHOLOGY NORMAL (NORMAL); SCAN/DIFF AUTO DIFF CONFIRMED
[2016-08-30 07:04] LABS: AUTOMATED NEUTROPHIL # 4.1 TH/MM3 (1.8-7.7); BASOPHIL % 0.4 % (0.0-2.0); EOSINOPHIL % 0.5 % (0.0-4.0); LYMPH % 7.7 % (9.0-44.0); LYMPHOCYTE # 0.4 TH/MM3 (1.0-4.8); MEAN CELL VOLUME 90.9 FL (80.0-100.0); MEAN CORPUSCULAR HEMOGLOBIN 30.4 PG (27.0-34.0); MEAN CORPUSCULAR HGB CONC 33.4 % (32.0-36.0); MONO % 10.1 % (0.0-8.0); NEUT % 81.3 % (16.0-70.0); PLATELET COUNT 75 TH/MM3 (150-450); RED BLOOD COUNT 2.28 MIL/MM3 (4.50-5.90); RED CELL DISTRIBUTION WIDTH 16.3 % (11.6-17.2)
[2016-08-30 07:10] LABS: HEMO FLAGS AUTO DIFF
[2016-08-30 07:11] LABS: HEMATOCRIT 20.7 % (39.0-51.0)
[2016-08-30 08:30] LABS: KERATOCYTES OCC (NORMAL); OVALOCYTES 1+ (NORMAL); PLATELET ESTIMATE SMEAR LOW (NORMAL); PLATELET MORPHOLOGY NORMAL (NORMAL); SCAN/DIFF AUTO DIFF CONFIRMED
[2016-08-30] MEDS: DOCUSATE SODIUM 50 MG/SENNA 8.6 MG TAB PO SCH ×2 (08:48→20:18)
[2016-08-30] MEDS: PRAVASTATIN SOD 40 MG TAB PO SCH (08:48)
[2016-08-30] MEDS: DOXAZOSIN MESYLATE 4 MG TAB PO SCH (08:48)
[2016-08-30] MEDS: METOPROLOL TARTRATE 50 MG TAB PO SCH ×2 (08:48→20:18)
[2016-08-30] MEDS: SODIUM CHLORIDE 0.9% FLUSH 10 ML FLUSH IV FLUSH SCH ×2 (08:56→20:18)
[2016-08-30] MEDS ORDERED: fentaNYL CITRATE 250 MCG/5 ML AMP ONE (09:28)
[2016-08-30] MEDS ORDERED: MIDAZOLAM HCL 5 MG/5 ML VIAL ONE (09:28)
--- NOTE | 2016-08-30 10:57 | PD.RAD ---
Post Procedure Progress Note Pre Procedure Diagnosis: (1) Hemorrhage of right kidney Post Procedure Diagnosis: (1) Hemorrhage of right kidney Procedure Date: Aug 30, 2016 Supervising Radiologist: Shekhar Wynn Proceduralist/Assist: Dilia Whitaker, RT(R)(CV), Russell [place], RT(R), Hue Dougherty RT(R)() Anesthesia: Conscious Sedation Plan of Activity Patient to Unit: Nursing Unit Patient Condition: Good Additional Comments: Diffuse renal hemorrhage from multiple arcuate branches. ? vasculitis? Gelfoam and coil embolization of right renal artery See PACS Report for procedural detail/treatment Shekhar Wynn MD Aug 30, 2016 10:57
[2016-08-30] MEDS ORDERED: IOHEXOL 350 MG/ML 50 ML BTL (for Cath Lab) ONE (11:34)
[2016-08-30] MEDS ORDERED: GELATIN 12 MM/7 MM FOAM I-ARTERIAL ONE (11:35)
--- NOTE | 2016-08-30 12:02 | RADRPT ---
EXAM DATE/TIME: 08/30/2016 09:40 [facility] COMPARISON: No previous studies available for comparison. INDICATIONS : Patient is in need of placement of a temporary dialysis catheter due to end stage renal disease. MEDICAL HISTORY : History of HTN, DM, AFIB, ESRD, BPH, hyperlipidemia. SURGICAL HISTORY : History of CABG with MAZE procedure, Tenckhoff catheter placement, cataract removal. ENCOUNTER: Initial ACUITY: Acute PAIN SCORE: 2/10 FLUORO TIME: 12.0 minutes IMAGE SERIES: 8 ACCESS: Right internal jugular vein MEDICATION(S): 1.) 2 mg midazolam (Versed) IV 2.) 100 mcg fentanyl (Sublimaze) IV DEVICE(S): 1.) 14 [place] dual lumen 15 cm Schon catheter PROCEDURE : 1. Ultrasound guided venipuncture. 2. Fluoroscopic guidance. 3. Central line placement. The risks, benefits and alternatives to the procedure were explained and verbal and written consent w as obtained. The site was prepped in sterile fashion. Full sterile technique was used, including ca p, mask, sterile gloves and gown and a large sterile sheet. Hand hygiene and 2% chlorhexidine prep w as utilized per protocol for cutaneous antisepsis with appropriate dry time for site. The skin and subcutaneous tissues were infiltrated with local anesthetic solution. A suitable site a luc the vein was selected with ultrasound and fluoroscopic guidance. A small incision was made. Th e vein was accessed under direct ultrasound visualization using the micropuncture technique. The thierry ropuncture set was exchanged for a 0.035 wire. The tract was dilated. The catheter was advanced int o position under direct fluoroscopic visualization. The catheter was fixed in place with suture and a sterile dressing was applied. The patient tolerated the procedure well and there were no complications. CONCLUSION: Uncomplicated line placement as above. Shekhar Wynn MD on August 30, 2016 at 12:00 Board Certified Radiologist. This report was verified electronically.
--- NOTE | 2016-08-30 13:46 | HHI.PR ---
Subjective Remarks Follow up right flank pain. Patient seen and examined, lying in bed comfortably , post embolization of the right renal artery in IR. Right groin bandage clean, dry, intact. Patient denies any pain at rest, does complain of intermittent discomfort with movement. Tolerating PO intake, denies any ab pain, n/v, diarrhea. VSS. Afebrile. Objective Vitals Vital Signs Date Time Temp Pulse Resp B/P Pulse Ox O2 Delivery O2 Flow Rate FiO2 08/30/16 11:57 97.9 109 14 123/66 90 08/30/16 07:45 99.1 82 20 146/75 95 08/30/16 05:00 86 08/30/16 04:00 86 08/30/16 04:00 99.3 89 18 154/77 96 08/30/16 03:00 72 08/30/16 02:00 66 08/30/16 01:00 64 08/30/16 00:00 97.6 72 20 140/70 97 08/30/16 00:00 62 08/29/16 23:00 56 08/29/16 22:00 52 08/29/16 21:00 68 08/29/16 20:00 98.5 63 20 150/80 97 08/29/16 20:00 70 08/29/16 17:43 97.8 69 18 144/71 95 08/29/16 15:59 79 16 142/70 100 Room Air I/O 08/29/16 08/29/16 08/29/16 08/30/16 08/30/16 08/30/16 07:00 15:00 23:00 07:00 15:00 23:00 Intake Total 1180 ml 240 ml Output Total 80 ml 300 ml Balance 1100 ml -60 ml Intake Oral 240 ml IV Total 1180 ml Output Urine Total 80 ml 300 ml Result Diagram: 08/30/16 0633 08/30/16 0309 Imaging Last Impressions Catheter Placement X-Ray 08/30/16 0000 Signed Impressions: Service Date/Time: August 09:40 - CONCLUSION: Uncomplicated line placement as above. Shekhar Wynn MD Abdomen/Pelvis CT 08/29/16 0908 Signed Impressions: Service Date/Time: Monday, August 29, 2016 09:23 - CONCLUSION: Normal renal tissue is not identified on the right side and the right kidney is basically replaced with mixed density material probably hemorrhage with active extravasation in the right lower pole and perinephric infiltration also mostly representing hemorrhage. It is very difficult to exclude underlying malignancy either as a solid mass or infiltrating malignancy at this time. Rogers Gunn MD Objective Remarks GENERAL: Well-nourished, well-developed patient in NAD. SKIN: Warm and dry. No rash. Right groin dressing intact, clean, d/i. Pulses present. HEAD: Normocephalic. Atraumatic. Pupils equal and round. No scleral icterus. No injection or drainage. No nasal bleeding or discharge. Mucous membranes pink and moist. NECK: Supple. Trachea midline. CARDIOVASCULAR: Irregularly irregular rhythm. No murmur appreciated. RESPIRATORY: No accessory muscle use. Clear to auscultation. Breath sounds equal bilaterally. GASTROINTESTINAL: Abdomen soft, non-tender, nondistended. Normoactive bowel sounds x4. Left lower quadrant PD catheter in place, dressing d/i. MUSCULOSKELETAL: No obvious deformities. Extremities without clubbing, cyanosis , or edema. NEUROLOGICAL: Awake and alert. No obvious cranial nerve deficits. Motor grossly within normal limits. 5/5 muscle strength in bilateral upper and lower extremities. Normal speech. PSYCHIATRIC: Appropriate mood and affect; insight and judgment normal. A/P Assessment and Plan 76 yo male with PMH of HTN, Afib on Coumadin. HLD came to the ED for evaluation of right flank pain, sharp radiating to hid buttocks getting worse. Patient is following with Dr. Allen mei for PD and is currently in training. End stage renal disease - Nephrology following patient, appreciate input. - Status post PD catheter placement. Right IJ vas cath placed temporarily. Hemorrhage of the right kidney - Status post Gelfoam and coil embolization of right renal artery by IR. - Urologist following patient, appreciate input. - Control pain, [place] PO PRN per pain scale. Dilaudid IV PRN per pain scale. Atrial fibrillation, chronic: Coumadin on hold for now. Continue Metoprolol. Type 2 diabetes mellitus: Continue to monitor Hypertension, chronic: Controlled. Continue Cardura. Monitor. Dyslipidemia, chronic: Continue Pravastatin. Supriya Lion Aug 30, 2016 13:46 Supriya Lion Aug 30, 2016 13:46
--- NOTE | 2016-08-30 14:41 | HHI.NPPN ---
Subjective History of Present Illness hx of Right renal hemorrhage Additional Remarks possible vasculitis Objective Data Data 08/29/16 08/30/16 19:00 07:00 Intake Total 1180 ml 240 ml Output Total 80 ml 300 ml Balance 1100 ml -60 ml Intake Oral 240 ml IV Total 1180 ml Output Urine Total 80 ml 300 ml Vital Signs Date Time Temp Pulse Resp B/P Pulse Ox O2 Delivery O2 Flow Rate FiO2 08/30/16 11:57 97.9 109 14 123/66 90 08/30/16 07:45 99.1 82 20 146/75 95 08/30/16 05:00 86 08/30/16 04:00 86 08/30/16 04:00 99.3 89 18 154/77 96 08/30/16 03:00 72 08/30/16 02:00 66 08/30/16 01:00 64 08/30/16 00:00 97.6 72 20 140/70 97 08/30/16 00:00 62 08/29/16 23:00 56 08/29/16 22:00 52 08/29/16 21:00 68 08/29/16 20:00 98.5 63 20 150/80 97 08/29/16 20:00 70 08/29/16 17:43 97.8 69 18 144/71 95 08/29/16 15:59 79 16 142/70 100 Room Air -: 08/30/16 0633 08/30/16 0309 Physical Exam General Appearance: Well Developed, Well Nourished Neck Neck Exam: Neck Supple Pulmonary Resp Exam: Clear Bilaterally, Breath Sounds Equal Cardiology CV Exam: Regular, Normal Sinus Rhythm Gastrointestinal/Abdomen GI Exam: Soft, Non-Tender, Bowel Sounds Present Extremeties Extremities Exam: No Edema Assessment/Plan Problem List: (1) ESRD (end stage renal disease) Plan: Patient just started training on peritoneal dialysis however he is having hemorrhage in the right kidney s/p embolization possible vasculitis work up including SHANTE/ANCA CE C3 SPEP ordered 1435 seen at dialysis UF 2 L 1UPRBC ordered (2) Hemorrhage of right kidney Plan: Patient is s/p embolization rt kidney spoke to Urology Dr. Villalobos he will follow as out patient (3) Afib Plan: He was on Coumadin which is being held (4) DM (diabetes mellitus) Plan: Continue to monitor (5) HTN (hypertension) Plan: Monitor blood pressure Jonathan,Sajid MD Aug 30, 2016 14:41
[2016-08-30] MEDS: HEPARIN SODIUM - IV 10,000 UNITS/10 ML VIAL PRN (15:05)
[2016-08-30] MEDS: EPOETIN ALFA 10,000 UNITS/ML VIAL IV PRN (15:05)
[2016-08-30] MEDS: GENTAMICIN SULFATE (DIALYSIS USE ONLY) 20 MG/2 ML VIAL IV PRN (15:06)
[2016-08-30] MEDS: SODIUM CHLOR 0.9% 1000 ML INJ 1,000 ML IV PRN (15:06)
--- NOTE | 2016-08-30 16:15 | RADRPT ---
EXAM DATE/TIME: 08/30/2016 09:40 [place] COMPARISON: CT ABDOMEN & PELVIS W CONTRAST, August 29, 2016, 9:23. INDICATIONS : 68-year-old male with history of spontaneous Right renal hemorrhage. Patient also has chronic kidney disease and is status post peritoneal dialysis catheter placement. He is deemed a poor surgical adair date for nephrectomy at this time. Therefore, renal artery embolization has been requested. MEDICAL HISTORY : History of HTN, DM, AFIB, ESRD, BPH, hyperlipidemia. SURGICAL HISTORY : History of CABG with MAZE procedure, Tenckhoff catheter placement, cataract removal. ENCOUNTER: Initial ACUITY: 2 days PAIN SCORE: 7/10 LOCATION: Right flank FLUORO TIME: 12.0 minutes IMAGE SERIES: 8 ACCESS SITE: Right Femoral artery SEDATION TIME: 60 minutes CONTRAST: 1.) 48 cc Omnipaque (iohexol) 350 MEDICATION(S): 1.) 2 mg midazolam (Versed) IV 2.) 100 mcg fentanyl (Sublimaze) IV 3.) 2200 units Heparin catheter lock DEVICE(S): 1.) Right renal artery.018/6mm x 10cm embolic coil(s) Interlock 2.) Right renal artery.018/5mm x 8cm embolic coil(s) Interlock 3.) Right renal artery 12-7mm Gelfoam PROCEDURE : 1. Ultrasound-guided puncture of the access site. 2. Conscious sedation with continuous EKG and Oximetry monitoring. 3. Angiography of the right renal artery 4. Gelfoam and coil embolization of the right renal artery 5. Completion aortogram The risks, benefits and alternatives to the procedure were explained and verbal and written consent w as obtained. The site was prepped in sterile fashion. Full sterile technique was used, including ca p, mask, sterile gloves and gown and a large sterile sheet. Hand hygiene and 2% chlorhexidine and/or betadine/alcohol prep was utilized per protocol for cutaneous antisepsis. The skin and subcutaneous tissues were infiltrated with local anesthetic solution. With ultrasound and fluoroscopic guidance the selected artery was punctured and a vascular sheath was placed. A Cobra catheter was used to select the right renal artery. Angiography was performed demons trating small caliber second order branches without definite extravasation of contrast. Catheter was therefore positioned distally into the right renal artery and angiography was repeated. This demonstr ated contrast extravasation in the inferior pole of the right kidney. Catheter was also repositioned into and interpreted branch and angiography was performed. This confirmed contrast extravasation in t he left lobe of the as well as multiple additional pseudoaneurysms with focal contrast extravasation in the mid to inferior pole. Given multiple sites of abnormality with extravasation, decision was ma de to perform proximal renal artery embolization. Small amount of Gelfoam was administered directly i nto the inferior pole branch and catheter was retracted into the distal main renal artery. Additional small amount of Gelfoam was injected. This was followed by Interlock coils and small amount of addit ional Gelfoam. Followup angiography demonstrated near stasis of flow in the right renal artery. The c atheter was then exchanged for a flush catheter which was advanced into the proximal abdominal aorta abdominal aortogram was performed. This again confirmed stasis of flow in the embolized right renal a rtery with no evidence of accessory renal arteries. Left renal artery is also abnormal multiple small pseudoaneurysms. The puncture site was closed with manual pressure and hemostasis was obtained. The patient tolerated the procedure well and there were no complications. Conscious sedation was performed with the prescribed dosages and duration as above in the presence of an independent trained radiology nurse to assist in the monitoring of the patient. EKG and oximetry remained stable throughout the procedure. CONCLUSION: 1. 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 The right renal a rtery pseudoaneurysms are more prominent in size with multiple foci of active hemorrhage. Therefore, right renal artery embolization was performed with coils and Gelfoam, as above. 2. Recommend clinical evaluation for vasculitis, particularly MILLAN. Shekhar Wynn MD on August 30, 2016 at 15:04 Board Certified Radiologist. This report was verified electronically.
[2016-08-31] VITALS (18 sets, daily range): BP systolic 107–142; BP diastolic 49–78; PULSE 50–90; RESP 18–22; TEMP 98–99.9; O2SAT 95–98
[2016-08-31 06:11] LABS: BASOPHIL % 0.3 % (0.0-2.0); EOSINOPHIL % 0.7 % (0.0-4.0); HEMATOCRIT 22.9 % (39.0-51.0); LYMPH % 10.9 % (9.0-44.0); LYMPHOCYTE # 0.6 TH/MM3 (1.0-4.8); MEAN CELL VOLUME 89.4 FL (80.0-100.0); MEAN CORPUSCULAR HEMOGLOBIN 29.6 PG (27.0-34.0); MEAN CORPUSCULAR HGB CONC 33.1 % (32.0-36.0); NEUT % 76.1 % (16.0-70.0); PLATELET COUNT 74 TH/MM3 (150-450); RED BLOOD COUNT 2.56 MIL/MM3 (4.50-5.90); RED CELL DISTRIBUTION WIDTH 16.6 % (11.6-17.2); WHITE BLOOD COUNT 5.2 TH/MM3 (4.0-11.0)
[2016-08-31 06:12] LABS: HEMO FLAGS AUTO DIFF
[2016-08-31 06:15] LABS: INTERNATIONAL NORMALIZED RATIO 1.3 RATIO
[2016-08-31 06:33] LABS: BICARBONATE 27.1 MEQ/L (21.0-32.0); POTASSIUM 4.3 MEQ/L (3.5-5.1)
[2016-08-31 08:49] LABS: TOTAL PROTEIN SPE 5.9 GM/DL (6.0-7.6)
[2016-08-31] MEDS: DOXAZOSIN MESYLATE 4 MG TAB PO SCH (09:00)
[2016-08-31] MEDS: DOCUSATE SODIUM 50 MG/SENNA 8.6 MG TAB PO SCH ×2 (09:00→21:00)
[2016-08-31] MEDS: PRAVASTATIN SOD 40 MG TAB PO SCH (09:25)
[2016-08-31] MEDS: METOPROLOL TARTRATE 50 MG TAB PO SCH ×2 (09:25→21:38)
[2016-08-31] MEDS: methylPREDNISolone SOD SUCC 125 MG/2 ML VIAL IV PUSH SCH ×2 (09:25→21:39)
[2016-08-31] MEDS: SODIUM CHLORIDE 0.9% FLUSH 10 ML FLUSH IV FLUSH SCH ×2 (09:26→21:39)
[2016-08-31 09:28] LABS: OVALOCYTES 1+ (NORMAL); PLATELET ESTIMATE SMEAR LOW (NORMAL); PLATELET MORPHOLOGY NORMAL (NORMAL); SCAN/DIFF AUTO DIFF CONFIRMED
--- NOTE | 2016-08-31 14:03 | HHI.PR ---
Subjective Remarks Follow-up for renal hemorrhage, possible vasculitis Still with flank pain, better than yesterday from 02/12-02/27. Nonradiating, sharp, mostly on the right hip. No nausea or vomiting, eating, ambulate into the bathroom. Afebrile. Feels stronger today. Objective Vitals Vital Signs Date Time Temp Pulse Resp B/P Pulse Ox O2 Delivery O2 Flow Rate FiO2 08/31/16 12:12 98.0 78 18 142/78 95 08/31/16 10:03 98.7 90 18 138/74 96 08/31/16 06:00 88 08/31/16 05:00 86 08/31/16 04:12 88 08/31/16 04:00 98.9 88 22 140/70 95 08/31/16 04:00 88 08/31/16 03:00 84 08/31/16 02:00 86 08/31/16 01:00 86 08/31/16 00:00 99.9 89 20 142/76 95 08/31/16 00:00 72 08/30/16 23:16 70 08/30/16 23:00 70 08/30/16 22:00 78 08/30/16 21:00 90 08/30/16 20:00 94 08/30/16 20:00 98.9 93 18 152/72 94 08/30/16 19:17 96 08/30/16 19:00 104 08/30/16 18:02 77 20 176/91 98 I/O 08/30/16 08/30/16 08/30/16 08/31/16 08/31/16 08/31/16 06:59 14:59 22:59 06:59 14:59 22:59 Intake Total 240 ml 120 ml 0 ml Output Total 300 ml 2000 ml 300 ml Balance -60 ml -2000 ml -180 ml 0 ml Intake Oral 240 ml 120 ml IV Total 0 ml Output Urine Total 300 ml 300 ml Hemodialysis 2000 ml # Bowel Movements 1 0 Result Diagram: 08/31/16 0548 08/31/16 0548 Imaging Last Impressions Renal Arteriogram 08/30/16 0000 Signed Impressions: Service Date/Time: August 09:40 - CONCLUSION: 1. 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 The right renal artery pseudoaneurysms are more prominent in size with multiple foci of active hemorrhage. Therefore, right renal artery embolization was performed with coils and Gelfoam, as above. 2. Recommend clinical evaluation for vasculitis, particularly MILLAN. Shekhar Wynn MD Catheter Placement X-Ray 08/30/16 0000 Signed Impressions: Service Date/Time: August 09:40 - CONCLUSION: Uncomplicated line placement as above. Shekhar Wynn MD Abdomen/Pelvis CT 08/29/16 0908 Signed Impressions: Service Date/Time: Monday, August 29, 2016 09:23 - CONCLUSION: Normal renal tissue is not identified on the right side and the right kidney is basically replaced with mixed density material probably hemorrhage with active extravasation in the right lower pole and perinephric infiltration also mostly representing hemorrhage. It is very difficult to exclude underlying malignancy either as a solid mass or infiltrating malignancy at this time. Rogers Gunn MD Objective Remarks Not in distress, well-nourished, looks stated age PERRL, pale conjunctiva without injection, anicteric Nose without bleeding, airway patent, oropharynx clear Right PermCath in place. Normal rate and irregular rhythm, no murmurs. Clear to auscultation and symmetric bilaterally, normal respiratory effort. Normal bowel sounds, soft, mild tenderness right lower quadrant on deep palpation. PD catheter in place. Extremities without clubbing, cyanosis, trace edema. No rash of generalized distribution. Skin is warm and dry. AAO x3, no cranial nerve deficits, moves all 4 extremities, no focal neurologic deficits Normal mood, appropriate affect A/P Problem List: (1) ESRD (end stage renal disease) ICD Code: N18.6 Status: Chronic (2) HTN (hypertension) ICD Code: I10 Status: Chronic (3) DM (diabetes mellitus) ICD Code: E11.9 Status: Chronic (4) Afib ICD Code: I48.91 Status: Chronic (5) Hemorrhage of right kidney ICD Code: N28.89 Status: Acute Assessment and Plan 76 yo male with PMH of HTN, Afib on Coumadin. HLD came to the ED for evaluation of right flank pain, sharp radiating to hid buttocks getting worse. Patient is following with Dr. Allen mei for PD and is currently in training. End stage renal disease - Nephrology consulted, possible vasculitis, bronchitis inserted, continue dialysis per nephrology. - Status post PD catheter placement. Right IJ vas cath placed temporarily. Hemorrhage of the right kidney, possible vasculitis. - Status post Gelfoam and coil embolization of right renal artery by IR 08/30. - Urologist following patient, appreciate input. Nonsurgical. Continue pain control, patient barely using [place]. Follow-up workup for vasculitis with SHANTE, ANCA, C3, CE, SPEP. Steroids started today. Atrial fibrillation, chronic: Coumadin on hold for now. INR subtherapeutic, continue metoprolol. Type 2 diabetes mellitus: Continue to monitor, statin scale insulin Anemia-hemoglobin stable, status post transfusion yesterday with 1 unit PRBC. Recheck CBC tomorrow. Hypertension, chronic: Controlled. Continue Cardura and metoprolol. Dyslipidemia, chronic: Continue Pravastatin. DVT prophylaxis: SCDs, pharmacological prophylaxis contraindicated because of recent bleed. Discharge Planning Discharged once cleared by nephrology. Might need outpatient dialysis Liliam So MD Aug 31, 2016 14:03
[2016-08-31] MEDS ORDERED: DEXTROSE 50% IN WATER 50 ML VIAL(D50) IV PUSH PRN (14:15)
[2016-08-31] MEDS ORDERED: GLUCAGON 1 MG/ML VIAL OTHER PRN (14:15)
[2016-08-31] MEDS: INSULIN ASPART SUPPLEMENTAL SCALE SQ SCH ×2 (16:00→21:43)
--- NOTE | 2016-08-31 17:26 | HHI.NPPN ---
Subjective History of Present Illness hx of Right renal hemorrhage Additional Remarks possible vasculitis Objective Data Data 08/30/16 08/31/16 19:00 07:00 Intake Total 120 ml Output Total 2000 ml 300 ml Balance -2000 ml -180 ml Intake Oral 120 ml Output Urine Total 300 ml Hemodialysis 2000 ml # Bowel Movements 1 0 Vital Signs Date Time Temp Pulse Resp B/P Pulse Ox O2 Delivery O2 Flow Rate FiO2 08/31/16 15:36 98.8 84 18 140/78 98 08/31/16 12:12 98.0 78 18 142/78 95 08/31/16 10:03 98.7 90 18 138/74 96 08/31/16 06:00 88 08/31/16 05:00 86 08/31/16 04:12 88 08/31/16 04:00 98.9 88 22 140/70 95 08/31/16 04:00 88 08/31/16 03:00 84 08/31/16 02:00 86 08/31/16 01:00 86 08/31/16 00:00 99.9 89 20 142/76 95 08/31/16 00:00 72 08/30/16 23:16 70 08/30/16 23:00 70 08/30/16 22:00 78 08/30/16 21:00 90 08/30/16 20:00 94 08/30/16 20:00 98.9 93 18 152/72 94 08/30/16 19:17 96 08/30/16 19:00 104 08/30/16 18:02 77 20 176/91 98 -: 08/31/16 0548 08/31/16 0548 Physical Exam General Appearance: Well Developed, Well Nourished Neck Neck Exam: Neck Supple Pulmonary Resp Exam: Clear Bilaterally, Breath Sounds Equal Cardiology CV Exam: Regular, Normal Sinus Rhythm Gastrointestinal/Abdomen GI Exam: Soft, Non-Tender, Bowel Sounds Present Extremeties Extremities Exam: No Edema Assessment/Plan Problem List: (1) ESRD (end stage renal disease) Plan: Patient just started training on peritoneal dialysis however he is having hemorrhage in the right kidney s/p embolization possible vasculitis work up including SHANTE/ANCA CE C3 SPEP ordered Polyarteritis [place] suspected started SoluMedrol await immunology need PermCath Saturday discussed with family low C3 CRP ESR high (2) Hemorrhage of right kidney Plan: Patient is s/p embolization rt kidney spoke to Urology Dr. Villalobos he will follow as out patient (3) Afib Plan: He was on Coumadin which is being held (4) DM (diabetes mellitus) Plan: Continue to monitor (5) HTN (hypertension) Plan: Monitor blood pressure Darlene Castillo MD Aug 31, 2016 17:26
[2016-08-31 18:56] LABS: ALBUMIN SPE 3.52 GM/DL (3.50-5.00); ALPHA 1 GLOBULIN 0.28 GM/DL (0.11-0.29); ALPHA 2 GLOBULIN 0.61 GM/DL (0.22-1.00); BETA GLOBULINS (SPE) 0.61 GM/DL (0.53-1.03)
[2016-09-01] VITALS (26 sets, daily range): BP systolic 139–157; BP diastolic 70–82; PULSE 48–95; RESP 18; TEMP 97.7–98.8; O2SAT 93–98
[2016-09-01] MEDS: TEMAZEPAM 15 MG CAP PO PRN ×2 (00:03→21:30)
[2016-09-01 05:57] LABS: AUTOMATED NEUTROPHIL # 4.8 TH/MM3 (1.8-7.7); BASOPHIL % 0.1 % (0.0-2.0); HEMATOCRIT 22.8 % (39.0-51.0); LYMPH % 6.8 % (9.0-44.0); LYMPHOCYTE # 0.4 TH/MM3 (1.0-4.8); MEAN CELL VOLUME 91.4 FL (80.0-100.0); MEAN CORPUSCULAR HEMOGLOBIN 30.3 PG (27.0-34.0); MEAN CORPUSCULAR HGB CONC 33.2 % (32.0-36.0); MONO % 3.1 % (0.0-8.0); PLATELET COUNT 76 TH/MM3 (150-450); RED BLOOD COUNT 2.49 MIL/MM3 (4.50-5.90); RED CELL DISTRIBUTION WIDTH 16.1 % (11.6-17.2); WHITE BLOOD COUNT 5.4 TH/MM3 (4.0-11.0)
[2016-09-01 06:06] LABS: INTERNATIONAL NORMALIZED RATIO 1.2 RATIO; PROTHROMBIN TIME - PATIENT 13.4 SEC (9.8-11.6)
[2016-09-01] MEDS: INSULIN ASPART SUPPLEMENTAL SCALE SQ SCH ×4 (06:36→21:30)
[2016-09-01 06:39] LABS: HEMO FLAGS AUTO DIFF
[2016-09-01 06:49] LABS: BICARBONATE 24.7 MEQ/L (21.0-32.0); POTASSIUM 4.6 MEQ/L (3.5-5.1)
[2016-09-01] MEDS: METOPROLOL TARTRATE 50 MG TAB PO SCH ×2 (08:20→20:44)
[2016-09-01] MEDS: PRAVASTATIN SOD 40 MG TAB PO SCH (08:20)
[2016-09-01] MEDS: DOXAZOSIN MESYLATE 4 MG TAB PO SCH (08:20)
[2016-09-01] MEDS: methylPREDNISolone SOD SUCC 125 MG/2 ML VIAL IV PUSH SCH ×2 (08:21→20:43)
[2016-09-01] MEDS: SODIUM CHLORIDE 0.9% FLUSH 10 ML FLUSH IV FLUSH SCH ×2 (08:21→20:45)
[2016-09-01] MEDS: DOCUSATE SODIUM 50 MG/SENNA 8.6 MG TAB PO SCH ×2 (08:21→20:44)
[2016-09-01 09:12] LABS: OVALOCYTES 1+ (NORMAL); PLATELET ESTIMATE SMEAR LOW (NORMAL); PLATELET MORPHOLOGY NORMAL (NORMAL); SCAN/DIFF AUTO DIFF CONFIRMED; TEARDROP RBCS 1+ (NORMAL)
[2016-09-01 09:13] LABS: ACANTHOCYTES OCC (NORMAL)
--- NOTE | 2016-09-01 12:51 | HHI.NPPN ---
Subjective History of Present Illness hx of Right renal hemorrhage Additional Remarks possible vasculitis Objective Data Data 08/31/16 09/01/16 19:00 07:00 Intake Total 0 ml 240 ml Balance 0 ml 240 ml Intake Oral 240 ml IV Total 0 ml # Voids 2 # Bowel Movements 0 Vital Signs Date Time Temp Pulse Resp B/P Pulse Ox O2 Delivery O2 Flow Rate FiO2 09/01/16 12:19 66 09/01/16 11:17 98.7 71 18 139/73 95 09/01/16 11:17 71 09/01/16 10:31 52 09/01/16 09:20 54 09/01/16 09:14 97 21 09/01/16 08:22 58 09/01/16 07:52 56 09/01/16 07:31 97.7 89 18 149/78 98 09/01/16 07:31 98 Room Air 09/01/16 06:00 62 09/01/16 05:00 60 09/01/16 04:00 48 09/01/16 04:00 Room Air 09/01/16 04:00 98.6 87 18 147/82 94 09/01/16 03:00 48 09/01/16 02:00 54 09/01/16 01:00 48 09/01/16 00:00 Room Air 09/01/16 00:00 54 09/01/16 00:00 98.8 78 18 141/81 97 08/31/16 23:00 50 08/31/16 22:00 60 08/31/16 21:00 62 08/31/16 20:00 Room Air 08/31/16 20:00 98.9 72 18 137/54 97 08/31/16 20:00 66 08/31/16 19:58 98 21 08/31/16 19:00 88 08/31/16 15:36 98.8 84 18 140/78 98 -: 09/01/16 0528 09/01/16 0528 Physical Exam General Appearance: Well Developed, Well Nourished Neck Neck Exam: Neck Supple Pulmonary Resp Exam: Clear Bilaterally, Breath Sounds Equal Cardiology CV Exam: Regular, Normal Sinus Rhythm Gastrointestinal/Abdomen GI Exam: Soft, Non-Tender, Bowel Sounds Present Extremeties Extremities Exam: No Edema Assessment/Plan Problem List: (1) ESRD (end stage renal disease) Plan: Patient just started training on peritoneal dialysis however he is having hemorrhage in the right kidney s/p embolization possible vasculitis work up including SHANTE/ANCA CE C3 SPEP ordered Polyarteritis [place] suspected started SoluMedrol await immunology need PermCath Saturday next HD today SHANTE negative C3 Low 1538 pm seen at dialysis UF 2 L (2) Hemorrhage of right kidney Plan: Patient is s/p embolization rt kidney Urology Dr. Villalobos he will follow as out patient (3) Afib Plan: He was on Coumadin which is being held (4) DM (diabetes mellitus) Plan: Continue to monitor BG higher on steroids (5) HTN (hypertension) Plan: Monitor blood pressure Darlene Castillo MD Sep 01, 2016 12:51
--- NOTE | 2016-09-01 15:27 | HHI.PR ---
Subjective Remarks Follow for flank pain No flank pain today, no need for analgesics. Denies any chest pain or shortness of breath, a febrile. For hemodialysis today. Blood glucose elevated. Objective Vitals Vital Signs Date Time Temp Pulse Resp B/P Pulse Ox O2 Delivery O2 Flow Rate FiO2 09/01/16 14:04 57 09/01/16 13:57 52 09/01/16 12:19 66 09/01/16 11:17 98.7 71 18 139/73 95 09/01/16 11:17 71 09/01/16 10:31 52 09/01/16 09:20 54 09/01/16 09:14 97 21 09/01/16 08:22 58 09/01/16 07:52 56 09/01/16 07:31 97.7 89 18 149/78 98 09/01/16 07:31 98 Room Air 09/01/16 06:00 62 09/01/16 05:00 60 09/01/16 04:00 48 09/01/16 04:00 Room Air 09/01/16 04:00 98.6 87 18 147/82 94 09/01/16 03:00 48 09/01/16 02:00 54 09/01/16 01:00 48 09/01/16 00:00 Room Air 09/01/16 00:00 54 09/01/16 00:00 98.8 78 18 141/81 97 08/31/16 23:00 50 08/31/16 22:00 60 08/31/16 21:00 62 08/31/16 20:00 Room Air 08/31/16 20:00 98.9 72 18 137/54 97 08/31/16 20:00 66 08/31/16 19:58 98 21 08/31/16 19:00 88 08/31/16 15:36 98.8 84 18 140/78 98 I/O 08/31/16 08/31/16 08/31/16 09/01/16 09/01/16 09/01/16 07:00 15:00 23:00 07:00 15:00 23:00 Intake Total 120 ml 0 ml 0 ml 240 ml Output Total 300 ml Balance -180 ml 0 ml 0 ml 240 ml Intake Oral 120 ml 240 ml IV Total 0 ml 0 ml Output Urine Total 300 ml # Voids 2 # Bowel Movements 0 0 Result Diagram: 09/01/1628 09/01/16527 Objective Remarks Not in distress, well-nourished, looks stated age PERRL, pale conjunctiva without injection, anicteric Nose without bleeding, airway patent, oropharynx clear Right PermCath in place. Normal rate and irregular rhythm, no murmurs. Clear to auscultation and symmetric bilaterally, normal respiratory effort. Normal bowel sounds, soft, no abdominal tenderness. Extremities without clubbing, cyanosis, trace edema. No rash of generalized distribution. Skin is warm and dry. AAO x3, no cranial nerve deficits, moves all 4 extremities, no focal neurologic deficits Normal mood, appropriate affect A/P Problem List: (1) ESRD (end stage renal disease) ICD Code: N18.6 Status: Chronic (2) HTN (hypertension) ICD Code: I10 Status: Chronic (3) DM (diabetes mellitus) ICD Code: E11.9 Status: Chronic (4) Afib ICD Code: I48.91 Status: Chronic (5) Hemorrhage of right kidney ICD Code: N28.89 Status: Acute Assessment and Plan 76 yo male with PMH of HTN, Afib on Coumadin. HLD came to the ED for evaluation of right flank pain, sharp radiating to hid buttocks getting worse. Patient is following with Dr. Allen mei for PD and is currently in training. End stage renal disease - Nephrology consulted, possible vasculitis, bronchitis inserted, continue dialysis per nephrology. - Status post PD catheter placement. Right IJ vas cath placed temporarily, for PermCath placement on Saturday. For dialysis today. 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 Steroids started yesterday. Hemorrhage of the right kidney, possible vasculitis. - Status post Gelfoam and coil embolization of right renal artery by IR 08/30. - Urologist following patient, appreciate input. Nonsurgical. Continue pain control, patient barely using [place]. Follow-up workup for vasculitis Atrial fibrillation, chronic: Coumadin on hold for now. INR subtherapeutic, continue metoprolol. Type 2 diabetes mellitus: Continue to monitor, statin scale insulin, oral hypoglycemics on hold. Anemia-hemoglobin stable, status post transfusion yesterday with 1 unit PRBC. Recheck CBC tomorrow. Hypertension, chronic: Controlled. Continue Cardura and metoprolol. Dyslipidemia, chronic: Continue Pravastatin. DVT prophylaxis: SCDs, pharmacological prophylaxis contraindicated because of recent bleed. Discharge Planning Discharged once cleared by nephrology. Might need outpatient dialysis Liliam So MD Sep 01, 2016 15:26
[2016-09-01] MEDS: EPOETIN ALFA 10,000 UNITS/ML VIAL IV PRN (18:03)
[2016-09-01] MEDS: HEPARIN SODIUM - IV 10,000 UNITS/10 ML VIAL PRN (18:03)
[2016-09-01] MEDS: GENTAMICIN SULFATE (DIALYSIS USE ONLY) 20 MG/2 ML VIAL IV PRN (18:04)
[2016-09-02] VITALS (24 sets, daily range): BP systolic 146–157; BP diastolic 72–87; PULSE 45–82; RESP 18–48; TEMP 97.8–98.7; O2SAT 94–98
[2016-09-02 06:58] LABS: INTERNATIONAL NORMALIZED RATIO 1.2 RATIO; PROTHROMBIN TIME - PATIENT 13.1 SEC (9.8-11.6)
[2016-09-02] MEDS: INSULIN ASPART SUPPLEMENTAL SCALE SQ SCH ×4 (07:15→20:37)
[2016-09-02] MEDS: PRAVASTATIN SOD 40 MG TAB PO SCH (08:38)
[2016-09-02] MEDS: methylPREDNISolone SOD SUCC 125 MG/2 ML VIAL IV PUSH SCH ×2 (08:39→20:32)
[2016-09-02] MEDS: DOCUSATE SODIUM 50 MG/SENNA 8.6 MG TAB PO SCH ×3 (08:39→20:33)
[2016-09-02] MEDS: METOPROLOL TARTRATE 50 MG TAB PO SCH (08:39)
[2016-09-02] MEDS: DOXAZOSIN MESYLATE 4 MG TAB PO SCH (08:39)
[2016-09-02] MEDS: SODIUM CHLORIDE 0.9% FLUSH 10 ML FLUSH IV FLUSH SCH ×2 (08:39→20:32)
[2016-09-02 13:40] LABS: AUTOMATED NEUTROPHIL # 5.1 TH/MM3 (1.8-7.7); HEMATOCRIT 24.1 % (39.0-51.0); LYMPH % 4.9 % (9.0-44.0); LYMPHOCYTE # 0.3 TH/MM3 (1.0-4.8); MEAN CORPUSCULAR HEMOGLOBIN 29.9 PG (27.0-34.0); MEAN CORPUSCULAR HGB CONC 32.9 % (32.0-36.0); MONO % 4.2 % (0.0-8.0); NEUT % 90.9 % (16.0-70.0); PLATELET COUNT 96 TH/MM3 (150-450); RED BLOOD COUNT 2.65 MIL/MM3 (4.50-5.90); RED CELL DISTRIBUTION WIDTH 16.3 % (11.6-17.2); WHITE BLOOD COUNT 5.6 TH/MM3 (4.0-11.0)
[2016-09-02 13:44] LABS: HEMO FLAGS AUTO DIFF
[2016-09-02 13:51] LABS: MYELOPEROXIDASE LESS THAN 1.0 AI (<1.0); PROTEINASE-3 LESS THAN 1.0 AI (<1.0)
[2016-09-02 14:09] LABS: BICARBONATE 27.8 MEQ/L (21.0-32.0); POTASSIUM 4.5 MEQ/L (3.5-5.1)
[2016-09-02 14:22] LABS: ACANTHOCYTES OCC (NORMAL); OVALOCYTES 1+ (NORMAL); PLATELET ESTIMATE SMEAR LOW (NORMAL); PLATELET MORPHOLOGY NORMAL (NORMAL); SCAN/DIFF AUTO DIFF CONFIRMED
--- NOTE | 2016-09-02 15:14 | HHI.PR ---
Subjective Remarks Follow-up on patient with flank pain. Patient seen and examined today. Patient states he feels well. He denies any acute medical complaints at this time. He is hoping to go home soon. He denies any fever, chills, nausea/ vomiting, shortness of breath, chest pain or abdominal pain. Objective Vitals Vital Signs Date Time Temp Pulse Resp B/P Pulse Ox O2 Delivery O2 Flow Rate FiO2 09/02/16 14:03 45 09/02/16 13:20 65 09/02/16 12:54 21 09/02/16 12:13 68 09/02/16 11:07 49 09/02/16 11:07 97.8 50 18 157/87 98 09/02/16 10:06 69 09/02/16 09:22 71 09/02/16 08:32 80 09/02/16 07:52 62 09/02/16 07:52 97.8 62 18 157/87 96 09/02/16 07:51 96 Room Air 09/02/16 06:00 82 09/02/16 05:00 68 09/02/16 04:00 64 09/02/16 03:00 65 09/02/16 02:00 61 09/02/16 01:00 60 09/02/16 00:00 63 09/01/16 23:00 97.8 62 18 145/70 93 09/01/16 23:00 63 09/01/16 22:00 91 09/01/16 21:00 93 09/01/16 20:00 92 09/01/16 19:07 21 09/01/16 19:00 98.0 92 18 157/81 97 09/01/16 19:00 97 Room Air 09/01/16 19:00 85 09/01/16 18:21 71 09/01/16 17:13 62 09/01/16 16:05 55 09/01/16 15:26 98.2 95 18 150/78 96 09/01/16 15:26 52 I/O 09/01/16 09/01/16 09/01/16 09/02/16 09/02/16 09/02/16 07:00 15:00 23:00 07:00 15:00 23:00 Intake Total 240 ml 720 ml Output Total 2300 ml Balance 240 ml -1580 ml Intake Oral 240 ml 720 ml Output Urine Total 300 ml Hemodialysis 2000 ml # Voids 2 # Bowel Movements 0 Result Diagram: 09/02/16 1319 09/02/16 1319 Imaging Last Impressions Renal Arteriogram 08/30/16 0000 Signed Impressions: Service Date/Time: August 09:40 - CONCLUSION: 1. 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 The right renal artery pseudoaneurysms are more prominent in size with multiple foci of active hemorrhage. Therefore, right renal artery embolization was performed with coils and Gelfoam, as above. 2. Recommend clinical evaluation for vasculitis, particularly MILLAN. Shekhar Wynn MD Catheter Placement X-Ray 08/30/16 0000 Signed Impressions: Service Date/Time: August 09:40 - CONCLUSION: Uncomplicated line placement as above. Shekhar Wynn MD Abdomen/Pelvis CT 08/29/16 0908 Signed Impressions: Service Date/Time: Monday, August 29, 2016 09:23 - CONCLUSION: Normal renal tissue is not identified on the right side and the right kidney is basically replaced with mixed density material probably hemorrhage with active extravasation in the right lower pole and perinephric infiltration also mostly representing hemorrhage. It is very difficult to exclude underlying malignancy either as a solid mass or infiltrating malignancy at this time. Rogers Gunn MD Objective Remarks GENERAL: Well-nourished, well-developed patient in NAD. Awake and alert. Appears comfortable. SKIN: Warm and dry. No rash. Right IJ cath in place. HEENT: Normocephalic. Atraumatic. EOMI. MMM. CARDIOVASCULAR: Irregular. S1, S2 noted. No murmur appreciated. RESPIRATORY: No accessory muscle use. Clear to auscultation. Breath sounds equal bilaterally. GASTROINTESTINAL: Abdomen soft, non-tender, nondistended. Normoactive bowel sounds x4. PD site covered, dressing C/D/I. MUSCULOSKELETAL: No obvious deformities. Extremities without clubbing or cyanosis. Trace edema noted. NEUROLOGICAL: Awake and alert. Able to move all extremities. Normal speech. Medications and IVs Current Medications Medications (Trade) Dose Ordered Sig/Yamilet Route Start Time Stop Time Status Last Admin (NS Flush) 2 ml UNSCH PRN IV FLUSH 08/29/16 12:15 (NS Flush) 2 ml BID IV FLUSH 08/29/16 21:00 09/02/16 08:39 (Tylenol) 650 mg Q4H PRN PO 08/29/16 12:15 (Zofran Inj) 4 mg Q6H PRN IVP 08/29/16 12:15 (Restoril) 15 mg HS PRN PO 08/29/16 12:15 09/01/16 21:30 (Jennifer-Colace) 1 tab BID PO 08/29/16 21:00 09/01/16 20:44 (Milk Of Magnesia Liq) 30 ml Q12H PRN PO 08/29/16 12:15 (Senokot) 17.2 mg Q12H PRN PO 08/29/16 12:15 (Dulcolax Supp) 10 mg DAILY PRN RECTAL 08/29/16 12:15 (Lactulose Liq) 30 ml DAILY PRN PO 08/29/16 12:15 (Cardura) 4 mg DAILY PO 08/30/16 09:00 09/02/16 08:39 (Lopressor) 50 mg BID PO 08/29/16 21:00 09/02/16 08:39 (Pravachol) 40 mg DAILY PO 08/30/16 09:00 09/02/16 08:38 (Apresoline) 10 mg Q6HR PRN PO 08/29/16 12:30 (Apresoline Inj) 20 mg Q4H PRN IV PUSH 08/29/16 12:30 (Dilaudid Pf Inj) 0.5 mg Q4H PRN IV PUSH 08/29/16 14:30 (Dilaudid Pf Inj) 1 mg Q4H PRN IV PUSH 08/29/16 14:30 Acetaminophen/ Hydrocodone Bitart 1 tab 1 tab Q4H PRN PO 08/29/16 14:30 08/31/16 00:26 Sodium Chloride 1,000 ml @ 0 mls/hr Q0M PRN IV 08/29/16 20:16 08/30/16 15:06 Sodium Chloride 1,000 ml @ 200 mls/hr Q5H PRN IV 08/29/16 20:16 (NS 1000 ml Inj) 1,000 ml @ 0 mls/hr Q0M PRN IV 08/29/16 20:16 (Mannitol Inj) 12.5 gm UNSCH PRN IV 08/29/16 20:30 (Albumin 25% Inj) 25 gm UNSCH PRN IV 08/29/16 20:30 (NS Flush) 5 ml UNSCH PRN IV FLUSH 08/29/16 20:30 (Heparin Inj) UNSCH PRN .XX 08/29/16 20:30 09/01/16 18:03 (Gentamicin (Dialysis) Inj) 20 mg UNSCH PRN IV 08/29/16 20:30 09/01/16 18:04 (Zofran Inj) 4 mg UNSCH PRN IV 08/29/16 20:30 (Tylenol) 650 mg UNSCH PRN PO 08/29/16 20:30 (Benadryl) 25 mg UNSCH PRN PO 08/29/16 20:30 (Nitrostat Sl) 0.4 mg UNSCH PRN SL 08/29/16 20:30 (Catapres) 0.1 mg UNSCH PRN PO 08/29/16 20:30 (Epogen Inj) 10,000 units UNSCH PRN IV 08/29/16 20:30 09/01/16 18:03 (Gelfoam 12 Mm/7 Mm Top) 1 foam UNSCH PRN TOP 08/29/16 20:30 (SoluMEDROL INJ) 60 mg Q12HR IV PUSH 08/31/16 09:00 09/02/16 08:39 (D50w (Vial) Inj) 25 ml UNSCH PRN IV PUSH 08/31/16 14:15 (Glucagon Inj) 1 mg UNSCH PRN OTHER 08/31/16 14:15 A/P Problem List: (1) ESRD (end stage renal disease) ICD Code: N18.6 Status: Chronic (2) HTN (hypertension) ICD Code: I10 Status: Chronic (3) DM (diabetes mellitus) ICD Code: E11.9 Status: Chronic (4) Afib ICD Code: I48.91 Status: Chronic (5) Hemorrhage of right kidney ICD Code: N28.89 Status: Acute Assessment and Plan 76 yo male with PMH of HTN, Afib on Coumadin. HLD came to the ED for evaluation of right flank pain, sharp radiating to hip/buttocks getting worse. Patient is following with Dr. Allen mei for PD and is currently in training. End stage renal disease - Nephrology consulted, possible vasculitis, continue dialysis per nephrology. - Status post PD catheter placement. Right IJ vas cath placed temporarily, for PermCath placement on Saturday. Hemorrhage of the right kidney, possible vasculitis. - Status post Gelfoam and coil embolization of right renal artery by IR 08/30. - Urologist following patient, appreciate input. Nonsurgical. Continue pain control, patient barely using [place]. - Follow-up workup for vasculitis. 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 Continue steroids. - CRP 10.40, ESR 45, SHANTE negative, Cryoglobulin pending Atrial fibrillation, chronic - Coumadin on hold for now. - INR subtherapeutic - Continue metoprolol. Type 2 diabetes mellitus - Continue to monitor/accuchecks - Continue sliding scale insulin - Resume Glipizide - BG higher on steroids - BS 203 this am Anemia - hemoglobin trending up - status post transfusion with 1 unit PRBC. Hypertension, chronic Bradycardia - Controlled. - Continue Cardura - Continue metoprolol but at lower dose 25mg BID with parameters. - monitor. Dyslipidemia, chronic - Continue Pravastatin. DVT prophylaxis: SCDs, pharmacological prophylaxis contraindicated because of recent bleed. Discussed with patient and Dr. So Discharge Planning Discharged once cleared by nephrology. Might need outpatient dialysis. Sandy Astudillo Sep 02, 2016 15:14
--- NOTE | 2016-09-02 16:53 | HHI.NPPN ---
Subjective History of Present Illness hx of Right renal hemorrhage Additional Remarks possible vasculitis Objective Data Data 09/01/16 09/02/16 18:59 06:59 Intake Total 720 ml Output Total 2300 ml Balance -1580 ml Intake Oral 720 ml Output Urine Total 300 ml Hemodialysis 2000 ml Vital Signs Date Time Temp Pulse Resp B/P Pulse Ox O2 Delivery O2 Flow Rate FiO2 09/02/16 16:04 69 09/02/16 15:25 56 09/02/16 15:25 98.1 69 18 148/72 94 09/02/16 14:03 45 09/02/16 13:20 65 09/02/16 12:54 21 09/02/16 12:13 68 09/02/16 11:07 49 09/02/16 11:07 97.8 50 18 157/87 98 09/02/16 10:06 69 09/02/16 09:22 71 09/02/16 08:32 80 09/02/16 07:52 62 09/02/16 07:52 97.8 62 18 157/87 96 09/02/16 07:51 96 Room Air 09/02/16 06:00 82 09/02/16 05:00 68 09/02/16 04:00 64 09/02/16 03:00 65 09/02/16 02:00 61 09/02/16 01:00 60 09/02/16 00:00 63 09/01/16 23:00 97.8 62 18 145/70 93 09/01/16 23:00 63 09/01/16 22:00 91 09/01/16 21:00 93 09/01/16 20:00 92 09/01/16 19:07 21 09/01/16 19:00 98.0 92 18 157/81 97 09/01/16 19:00 97 Room Air 09/01/16 19:00 85 09/01/16 18:21 71 09/01/16 17:13 62 -: 09/02/16 1319 09/02/16 1319 Physical Exam General Appearance: Well Developed, Well Nourished Neck Neck Exam: Neck Supple Pulmonary Resp Exam: Clear Bilaterally, Breath Sounds Equal Cardiology CV Exam: Regular, Normal Sinus Rhythm Gastrointestinal/Abdomen GI Exam: Soft, Non-Tender, Bowel Sounds Present Extremeties Extremities Exam: No Edema Assessment/Plan Problem List: (1) ESRD (end stage renal disease) Plan: Patient just started training on peritoneal dialysis however he is having hemorrhage in the right kidney s/p embolization possible vasculitis work up including SHANTE/ANCA CE C3 SPEP ordered Polyarteritis Nodosa suspected started SoluMedrol immunology negative need PermCath Saturday next HD Saturday may remain on HD since recent Bleeding from major organ and possible MILLAN for few weeks SHANTE/ANCA negative C3 Low possible MILLAN based on Angiogram FU with Dr. Villa (2) Hemorrhage of right kidney Plan: Patient is s/p embolization rt kidney Urology Dr. Villalobos he will follow as out patient (3) Afib Plan: He was on Coumadin which is being held (4) DM (diabetes mellitus) Plan: Continue to monitor BG higher on steroids (5) HTN (hypertension) Plan: Monitor blood pressure Darlene Castillo MD Sep 02, 2016 16:52
[2016-09-02] MEDS: glipiZIDE 5 MG TAB PO SCH (17:28)
[2016-09-02] MEDS: TEMAZEPAM 15 MG CAP PO PRN (20:40)
[2016-09-02] MEDS ORDERED: METOPROLOL TARTRATE 50 MG TAB PO SCH (21:00)
[2016-09-03] VITALS (29 sets, daily range): BP systolic 139–155; BP diastolic 84–91; PULSE 57–92; RESP 16–20; TEMP 97.6–98.5; O2SAT 95–97
[2016-09-03] MEDS: INSULIN ASPART SUPPLEMENTAL SCALE SQ SCH ×4 (07:00→21:32)
[2016-09-03] MEDS: glipiZIDE 5 MG TAB PO SCH ×2 (07:00→16:42)
[2016-09-03 07:01] LABS: AUTOMATED NEUTROPHIL # 4.9 TH/MM3 (1.8-7.7); HEMATOCRIT 24.8 % (39.0-51.0); LYMPH % 5.6 % (9.0-44.0); LYMPHOCYTE # 0.3 TH/MM3 (1.0-4.8); MEAN CELL VOLUME 89.9 FL (80.0-100.0); MEAN CORPUSCULAR HEMOGLOBIN 30.7 PG (27.0-34.0); MEAN CORPUSCULAR HGB CONC 34.2 % (32.0-36.0); MONO % 4.1 % (0.0-8.0); NEUT % 90.3 % (16.0-70.0); PLATELET COUNT 93 TH/MM3 (150-450); RED BLOOD COUNT 2.76 MIL/MM3 (4.50-5.90); RED CELL DISTRIBUTION WIDTH 15.8 % (11.6-17.2); WHITE BLOOD COUNT 5.5 TH/MM3 (4.0-11.0)
[2016-09-03 07:08] LABS: HEMO FLAGS AUTO DIFF
[2016-09-03 07:12] LABS: INTERNATIONAL NORMALIZED RATIO 1.2 RATIO; PROTHROMBIN TIME - PATIENT 13.3 SEC (9.8-11.6)
[2016-09-03 07:24] LABS: BICARBONATE 22.5 MEQ/L (21.0-32.0); POTASSIUM 4.4 MEQ/L (3.5-5.1)
[2016-09-03] MEDS ORDERED: VANCOMYCIN INJ 1,000 MG in SODIUM CHLOR 0.9% 250 ML INJ 250 ML IV SCH (08:15)
[2016-09-03] MEDS ORDERED: ceFAZolin 2 GM PREMIX 50 ML IV SCH (08:15)
[2016-09-03 08:24] LABS: BANDS 4 % (0-6); CORRECTED NUCLEATED RBC 1 /100 WBC (0-0); NEUTROPHIL # MANUAL DIFF 5.1 TH/MM3 (1.8-7.7); POLYS (SEG NEUTROPHILS) 88 % (16-70); WBC DIFF SAMPLE 100
[2016-09-03 08:25] LABS: ACANTHOCYTES 1+ (NORMAL); PLATELET ESTIMATE SMEAR LOW (NORMAL); PLATELET MORPHOLOGY NORMAL (NORMAL); POLYCHROMASIA 2.9 % (0.0-1.9); SCAN/DIFF FINAL DIFF MANUAL; SPHEROCYTES 1+ (NORMAL)
[2016-09-03] MEDS: DOXAZOSIN MESYLATE 4 MG TAB PO SCH (09:00)
[2016-09-03] MEDS: DOCUSATE SODIUM 50 MG/SENNA 8.6 MG TAB PO SCH ×2 (09:00→21:25)
[2016-09-03] MEDS: methylPREDNISolone SOD SUCC 125 MG/2 ML VIAL IV PUSH SCH ×2 (09:32→21:25)
[2016-09-03] MEDS: PRAVASTATIN SOD 40 MG TAB PO SCH (09:33)
[2016-09-03] MEDS: SODIUM CHLORIDE 0.9% FLUSH 10 ML FLUSH IV FLUSH SCH ×2 (09:35→21:25)
--- NOTE | 2016-09-03 09:35 | HHI.PR ---
Subjective Remarks Follow-up for end-stage renal disease and right renal hemorrhage Patient has no concern. He stated pain is controlled. Denies any chest pain, palpitation, lightheadedness or dizziness. Patient's very anxious to go home. Patient scheduled for permacath today. Objective Vitals Vital Signs Date Time Temp Pulse Resp B/P Pulse Ox O2 Delivery O2 Flow Rate FiO2 09/03/16 07:25 90 18 143/86 95 09/03/16 06:00 68 09/03/16 05:00 66 09/03/16 04:00 67 09/03/16 03:00 98.5 68 16 154/86 96 09/03/16 03:00 67 09/03/16 02:00 61 09/03/16 01:00 67 09/03/16 00:00 57 09/02/16 23:00 63 09/02/16 23:00 98.7 63 20 146/82 95 09/02/16 22:37 21 09/02/16 22:00 50 09/02/16 21:00 68 09/02/16 20:00 70 09/02/16 19:00 75 09/02/16 19:00 97 Room Air 09/02/16 19:00 98.4 75 18 152/87 97 09/02/16 18:02 67 09/02/16 17:07 68 09/02/16 16:04 69 09/02/16 15:25 56 09/02/16 15:25 98.1 69 18 148/72 94 09/02/16 14:03 45 09/02/16 13:20 65 09/02/16 12:54 21 09/02/16 12:13 68 09/02/16 11:07 49 09/02/16 11:07 97.8 50 18 157/87 98 09/02/16 10:06 69 I/O 09/02/16 09/02/16 09/02/16 09/03/16 09/03/16 09/03/16 07:00 15:00 23:00 07:00 15:00 23:00 Intake Total 720 ml 240 ml Output Total 350 ml 500 ml Balance 370 ml -260 ml Intake Oral 720 ml 240 ml Output Urine Total 350 ml 500 ml Stool Total 0 ml # Bowel Movements 1 Result Diagram: 09/03/16 0525 09/03/16524 Objective Remarks GENERAL: in NAD SKIN: right IJ HEAD: Normocephalic. EYES: No scleral icterus. No injection or drainage. NECK: Supple, trachea midline. No JVD or lymphadenopathy. CARDIOVASCULAR: Regular rate and rhythm without murmurs, gallops, or rubs. RESPIRATORY: Breath sounds equal bilaterally. No accessory muscle use. GASTROINTESTINAL: Abdomen soft, non-tender, nondistended. permacath MUSCULOSKELETAL: No cyanosis, or edema. BACK: Nontender without obvious deformity. No CVA tenderness. Medications and IVs Current Medications Ketorolac Tromethamine (Toradol Inj) 30 mg ONCE ONCE IVP Last administered on 08/29/16 08:18; Start 08/29/16 at 08:00; Stop 08/29/16 at 08:01; Status DC Ondansetron HCl (Zofran Inj) 4 mg ONCE ONCE IVP Last administered on 08:18; Start 08/29/16 at 08:00; Stop 08/29/16 at 08:01; Status DC Sodium Chloride 2 ml 2 ml UNSCH PRN IVF FLUSH AFTER USING IV ACCESS; Start 02/03 at 08:00; Stop 08/29/16 at 12:38; Status DC Sodium Chloride (NS 1000 ml Inj) 1,000 ml @ 1,000 mls/hr Q1H ONCE IV Last administered on 08/29/16 08:17; Start 08/29/16 at 07:48; Stop 08/29/16 at 08:47 ; Status DC Hydromorphone HCl (Dilaudid Pf Inj) 0.5 mg ONCE ONCE IVS Last administered on 08/29/16 08:17; Start 08/29/16 at 08:00; Stop 08/29/16 at 08:01; Status DC Iodixanol 75 ml 75 ml STK-MED ONCE IV Last administered on 08/29/16 09:50; Start 08/29/16 at 09:50; Stop 08/29/16 at 09:51; Status DC Phytonadione 10 mg/Sodium Chloride 51 ml @ 100 mls/hr ONCE ONCE IV Last administered on 08/29/16 11:23; Start 08/29/16 at 10:30; Stop 08/29/16 at 11:01 ; Status DC Prothrombin Complex Concent (Human)/Syringe / Bag (Kcentra Inj/ Syringe/Bag) 0 ml @ 500 mls/hr ONCE ONCE IV Last administered on 08/29/16 11:22; Start 08/29 at 11:00; Stop 08/29/16 at 11:01; Status DC Insulin Human Regular (NovoLIN R INJ) 5 units ONCE ONCE IV PUSH Last administered on 08/29/16 11:01; Start 08/29/16 at 10:45; Stop 08/29/16 at 10:52 ; Status DC Dextrose (D50w (Vial) Inj) 50 ml ONCE ONCE IV PUSH Last administered on 10:54; Start 08/29/16 at 10:45; Stop 08/29/16 at 10:52; Status DC Sodium Bicarbonate (Sodium Bicarbonate 8.4% Inj) 50 meq ONCE ONCE SLOW IVP Last administered on 08/29/16 11:04; Start 08/29/16 at 10:45; Stop 08/29/16 at 10:53; Status DC Albuterol Sulfate (Albuterol Concentrated Neb) 10 mg ONCE ONCE INH Last administered on 08/29/16 10:49; Start 08/29/16 at 10:45; Stop 08/29/16 at 10:52 ; Status DC Sodium Chloride (NS Flush) 2 ml UNSCH PRN IV FLUSH FLUSH AFTER USING IV ACCESS ; Start 08/29/16 at 12:15 Sodium Chloride (NS Flush) 2 ml BID IV FLUSH Last administered on 09/02/16 20: 32; Start 08/29/16 at 21:00 Acetaminophen (Tylenol) 650 mg Q4H PRN PO TEMP > 100.4; Start 08/29/16 at 12:15 Ondansetron HCl (Zofran Inj) 4 mg Q6H PRN IVP NAUSEA OR VOMITING; Start at 12:15 Temazepam (Restoril) 15 mg HS PRN PO INSOMNIA Last administered on 09/02/16 20 :40; Start 08/29/16 at 12:15 Senna/Docusate Sodium (Jennifer-Colace) 1 tab BID PO Last administered on 20:44; Start 08/29/16 at 21:00 Magnesium Hydroxide (Milk Of Magnesia Liq) 30 ml Q12H PRN PO MILD - MODERATE CONSTIPATION; Start 08/29/16 at 12:15 Sennosides (Senokot) 17.2 mg Q12H PRN PO MODERATE - SEVERE CONSTIPATION; Start 08/29/16 at 12:15 Bisacodyl (Dulcolax Supp) 10 mg DAILY PRN RECTAL SEVERE CONSITIPATION; Start at 12:15 Lactulose (Lactulose Liq) 30 ml DAILY PRN PO SEVERE CONSITIPATION; Start at 12:15 Doxazosin Mesylate (Cardura) 4 mg DAILY PO Last administered on 09/02/16 08:39 ; Start 08/30/16 at 09:00 Metoprolol Tartrate (Lopressor) 50 mg BID PO Last administered on 09/02/16 08: 39; Start 08/29/16 at 21:00; Stop 09/02/16 at 17:22; Status DC Pravastatin Sodium (Pravachol) 40 mg DAILY PO Last administered on 09/02/16 08 :38; Start 08/30/16 at 09:00 Hydralazine HCl (Apresoline) 10 mg Q6HR PRN PO SBP>160, DBP>90; Start 08/29/16 at 12:30 Hydralazine HCl (Apresoline Inj) 20 mg Q4H PRN IV PUSH SBP>160, DBP>90; Start 08/29/16 at 12:30 Hydromorphone HCl (Dilaudid Pf Inj) 0.5 mg Q4H PRN IV PUSH pain 2-10; Start 02/03 at 14:30 Hydromorphone HCl (Dilaudid Pf Inj) 1 mg Q4H PRN IV PUSH breakthrough pain ; Start 08/29/16 at 14:30 Acetaminophen/ Hydrocodone Bitart 1 tab 1 tab Q4H PRN PO pain 2-10 Last administered on 08/31/16 00:26; Start 08/29/16 at 14:30 Sodium Chloride 1,000 ml @ 0 mls/hr Q0M PRN IV For Prime & Rinse Back Last administered on 08/30/16 15:06; Start 08/29/16 at 20:16 Sodium Chloride 1,000 ml @ 200 mls/hr Q5H PRN IV WITH DIALYSIS; Start 08/29/16 at 20:16 Sodium Chloride (NS 1000 ml Inj) 1,000 ml @ 0 mls/hr Q0M PRN IV WITH DIALYSIS; Start 08/29/16 at 20:16 Mannitol (Mannitol Inj) 12.5 gm UNSCH PRN IV WITH DIALYSIS; Start 08/29/16 at 20:30 Albumin Human (Albumin 25% Inj) 25 gm UNSCH PRN IV WITH DIALYSIS; Start at 20:30 Sodium Chloride (NS Flush) 5 ml UNSCH PRN IV FLUSH WITH DIALYSIS; Start at 20:30 Heparin Sodium (Porcine) (Heparin Inj) UNSCH PRN .XX WITH DIALYSIS Last administered on 09/01/16 18:03; Start 08/29/16 at 20:30 Gentamicin Sulfate (Gentamicin (Dialysis) Inj) 20 mg UNSCH PRN IV WITH DIALYSIS Last administered on 09/01/16 18:04; Start 08/29/16 at 20:30 Ondansetron HCl (Zofran Inj) 4 mg UNSCH PRN IV WITH DIALYSIS; Start 08/29/16 at 20:30 Acetaminophen (Tylenol) 650 mg UNSCH PRN PO for headach,temp > 101F; Start 02/03 at 20:30 Diphenhydramine HCl (Benadryl) 25 mg UNSCH PRN PO for hives/itching/anaphylaxis ; Start 08/29/16 at 20:30 Nitroglycerin (Nitrostat Sl) 0.4 mg UNSCH PRN SL CHEST PAIN; Start 08/29/16 at 20:30 Clonidine (Catapres) 0.1 mg UNSCH PRN PO for BP > 180/100 X 2 readings; Start 08/29/16 at 20:30 Epoetin [place] (Epogen Inj) 10,000 units UNSCH PRN IV WITH DIALYSIS Last administered on 09/01/16 18:03; Start 08/29/16 at 20:30 Gelatin (Gelfoam 12 Mm/7 Mm Top) 1 foam UNSCH PRN TOP SEE LABEL COMMENTS; Start 08/29/16 at 20:30 Midazolam HCl (Versed Inj) 5 mg STK-MED ONCE .ROUTE Last administered on 09:50; Start 08/30/16 at 09:28; Stop 08/30/16 at 09:29; Status DC Fentanyl Citrate (fentaNYL INJ) 250 mcg STK-MED ONCE .ROUTE Last administered on 08/30/16 09:50; Start 08/30/16 at 09:28; Stop 08/30/16 at 09:29; Status DC Heparin Sodium (Porcine) (*HEPARIN INJ Periprocedural ONLY) 10,000 units STK- MED ONCE .ROUTE Last administered on 08/30/16 10:02; Start 08/30/16 at 10:02; Stop 08/30/16 at 10:03; Status DC Iohexol (OMNIPAQUE 350 INJ (Chemist Inorganic)) 48 ml STK-MED ONCE .XX Last administered on 08/30/16 11:34; Start 08/30/16 at 11:34; Stop 08/30/16 at 11:35 ; Status DC Gelatin (Gelfoam 12 Mm/7 Mm Top) 1 foam STK-MED ONCE I-ARTERIAL Last administered on 08/30/16 11:35; Start 08/30/16 at 11:35; Stop 08/30/16 at 11:36 ; Status DC Methylprednisolone Sodium Succinate (SoluMEDROL INJ) 60 mg Q12HR IV PUSH Last administered on 09/02/16 20:32; Start 08/31/16 at 09:00 Insulin Aspart (NovoLOG SUPPLEMENTAL SCALE) 1 ACHS SLIDING SCALE SQ Last administered on 09/02/16 20:37; Start 08/31/16 at 16:00 Dextrose (D50w (Vial) Inj) 25 ml UNSCH PRN IV PUSH HYPOGLYCEMIA - SEE COMMENTS ; Start 08/31/16 at 14:15 Glucagon (Glucagon Inj) 1 mg UNSCH PRN OTHER HYPOGLYCEMIA-SEE COMMENTS; Start 08/31/16 at 14:15 Glipizide (Glucotrol) 5 mg BIDAC PO Last administered on 09/02/16 17:28; Start 09/02/16 at 17:30 Metoprolol Tartrate 25 mg 25 mg BID PO Last administered on 09/02/16 20:32; Start 09/02/16 at 21:00 Vancomycin HCl 1000 mg/Sodium Chloride 250 ml @ 250 mls/hr KITCHEN HELPER IV ; Start 09/03/16 at 08:15; Stop 09/07/16 at 08:14 Cefazolin Sodium/ Dextrose (Ancef 2 Gm Premix) 50 ml @ 100 mls/hr KITCHEN HELPER IV ; Start 09/03/16 at 08:15; Stop 09/07/16 at 08:14 A/P Problem List: (1) ESRD (end stage renal disease) ICD Code: N18.6 Status: Chronic (2) HTN (hypertension) ICD Code: I10 Status: Chronic (3) DM (diabetes mellitus) ICD Code: E11.9 Status: Chronic (4) Afib ICD Code: I48.91 Status: Chronic (5) Hemorrhage of right kidney ICD Code: N28.89 Status: Acute Assessment and Plan 76 yo male with PMH of HTN, Afib on Coumadin. HLD came to the ED for evaluation of right flank pain, sharp radiating to hid buttocks getting worse. Patient is following with Dr. Allen mei for PD and is currently in training. End stage renal disease - Nephrology consulted, possible vasculitis, bronchitis inserted, continue dialysis per nephrology. - Status post PD catheter placement. Right IJ vas cath placed temporarily. 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 -On steroids. -Patient scheduled for permacath today. Hemorrhage of the right kidney, possible vasculitis. - Status post Gelfoam and coil embolization of right renal artery by IR 08/30. - Urologist following patient, appreciate input. Nonsurgical. Continue pain control, patient barely using [place]. Follow-up workup for vasculitis Atrial fibrillation, chronic -Coumadin on hold for now. INR subtherapeutic, continue metoprolol. Type 2 diabetes mellitus - Continue to monitor, statin scale insulin, oral hypoglycemics on hold. Anemia-hemoglobin stable -status post transfusion 1 unit PRBC on 09/01. -Hemoglobin stable and slightly elevated today. Hypertension, chronic: Controlled. Continue Cardura and metoprolol. Dyslipidemia, chronic: Continue Pravastatin. DVT prophylaxis: SCDs, pharmacological prophylaxis contraindicated because of recent bleed. Discharge Planning Patient scheduled for permacath today. Management per scallop binder. Rowena Napoles MD Sep 03, 2016 09:35
[2016-09-03] MEDS ORDERED: EPINEPHrine HCL (1:10,000) 1 MG/10 ML SYRINGE ONE (11:29)
[2016-09-03] MEDS ORDERED: ATROPINE SULFATE 1 MG/10 ML SYRINGE ONE ×2 (11:30→11:47)
[2016-09-03] MEDS ORDERED: MIDAZOLAM HCL 5 MG/5 ML VIAL ONE (11:34)
[2016-09-03] MEDS ORDERED: fentaNYL CITRATE 250 MCG/5 ML AMP ONE (11:35)
[2016-09-03] MEDS ORDERED: PILL SPLITTER OTHER PRN (12:00)
[2016-09-03] MEDS ORDERED: LIDOCAINE 1%/EPINEPHrine 1:100,000 SOLN 20 ML VIAL ONE (12:18)
--- NOTE | 2016-09-03 13:15 | RADRPT ---
EXAM DATE/TIME: 09/03/2016 12:05 [facility] COMPARISON: No previous studies available for comparison. INDICATIONS : Patient with a history of renal disease, needs dialysis. MEDICAL HISTORY : Hypertension Diabetes Hyperlipidemia CAD AFIB ESRD BPH SURGICAL HISTORY : CABG Maze procedure Coronary angiograms Cataract surgery ENCOUNTER: Subsequent ACUITY: 4-6 days PAIN SCORE: 0/10 FLUORO TIME: 0.4 minutes IMAGE SERIES: 0 SEDATION TIME: 15 minutes ACCESS: Right internal jugular vein SEDATION: 1.) 2 mg midazolam (Versed) IV 2.) 100 mcg fentanyl (Sublimaze) IV Prophylactic antibiotics were administered with appropriate pre-procedure timing. Vancomycin within 2 hours of procedure, Ancef (or alternative) within 1 hour of procedure. DEVICE: 1. 15 Polish dual lumen 19 cm Marshall II Plus catheter PROCEDURE : 1. Ultrasound-guided venipuncture. 2. PermaCath placement. 3. Conscious sedation with continuous EKG and oximetry monitoring. The risks, benefits and alternatives to the procedure were explained and verbal and written consent w as obtained. The site was prepped in sterile fashion. Full sterile technique was used, including ca p, mask, sterile gloves and gown and a large sterile sheet. Hand hygiene and 2% chlorhexidine and/or betadine/alcohol prep was utilized per protocol for cutaneous antisepsis. The skin and subcutaneous tissues were infiltrated with local anesthetic solution. With ultrasound and fluoroscopic guidance a dermatotomy was created over the prescribed vein. A micr opuncture set was used to access the targeted vein and serial dilatation was performed to accept the prescribed length catheter. A subcutaneous tunnel was created in a retrograde fashion the catheter w as pulled through the tunnel. The catheter was flushed and assembled and locked with heparin. The c atheter was sutured in place. Conscious sedation was performed with the prescribed dosages and duration as above in the presence of an independent trained radiology nurse to assist in the monitoring of the patient. EKG and oximetry remained stable throughout the procedure. The patient tolerated the procedure well and there were n o complications. The patient was sent to post anesthesia recovery in stable condition. CONCLUSION: Uncomplicated PermaCath placement as above. Shekhar Wynn MD on September 03, 2016 at 13:13 Board Certified Radiologist. This report was verified electronically.
--- NOTE | 2016-09-03 13:27 | PD.RAD ---
Post Procedure Progress Note Pre Procedure Diagnosis: (1) DM (diabetes mellitus) (2) ESRD (end stage renal disease) Post Procedure Diagnosis: (1) DM (diabetes mellitus) (2) ESRD (end stage renal disease) Procedure Date: Sep 03, 2016 Supervising Radiologist: Shekhar Wynn Proceduralist/Assist: Emilie Peralta, RT(R), Debbie Davison RT(R) Anesthesia: Conscious Sedation Plan of Activity Patient to Unit: Nursing Unit Patient Condition: Good Additional Comments: placed right IJ HD cath See PACS Report for procedural detail/treatment Shekhar Wynn MD Sep 03, 2016 13:27
[2016-09-03] MEDS ORDERED: HEPARIN SODIUM - IV 2,000 UNITS/2 ML VIAL IV FLUSH PRN (13:30)
[2016-09-03] MEDS ORDERED: SODIUM CHLORIDE 0.9% FLUSH 10 ML FLUSH IVF PRN (13:30)
--- NOTE | 2016-09-03 15:47 | HHI.NPPN ---
Subjective History of Present Illness hx of Right renal hemorrhage Additional Remarks Patient is alert, and Rt. flank pain is better. Objective Data Data 09/02/16 09/03/16 19:00 07:00 Intake Total 720 ml 240 ml Output Total 350 ml 500 ml Balance 370 ml -260 ml Intake Oral 720 ml 240 ml Output Urine Total 350 ml 500 ml Stool Total 0 ml # Bowel Movements 1 Vital Signs Date Time Temp Pulse Resp B/P Pulse Ox O2 Delivery O2 Flow Rate FiO2 09/03/16 14:20 96 09/03/16 13:00 69 09/03/16 12:00 95 Room Air 09/03/16 12:00 70 09/03/16 11:00 69 18 155/84 97 09/03/16 11:00 88 09/03/16 10:00 70 09/03/16 09:00 70 09/03/16 08:00 90 09/03/16 07:25 90 18 143/86 95 09/03/16 07:00 90 09/03/16 07:00 95 Room Air 09/03/16 07:00 61 09/03/16 06:00 68 09/03/16 05:00 66 09/03/16 04:00 67 09/03/16 03:00 98.5 68 16 154/86 96 09/03/16 03:00 67 09/03/16 02:00 61 09/03/16 01:00 67 09/03/16 00:00 57 09/02/16 23:00 63 09/02/16 23:00 98.7 63 20 146/82 95 09/02/16 22:37 21 09/02/16 22:00 50 09/02/16 21:00 68 09/02/16 20:00 70 09/02/16 19:00 75 09/02/16 19:00 97 Room Air 09/02/16 19:00 98.4 75 18 152/87 97 09/02/16 18:02 67 09/02/16 17:07 68 09/02/16 16:04 69 -: 09/03/16 0525 09/03/16 0525 Physical Exam General Appearance: Well Developed, Well Nourished Neck Neck Exam: Neck Supple Pulmonary Resp Exam: Clear Bilaterally, Breath Sounds Equal Cardiology CV Exam: Regular, Normal Sinus Rhythm Gastrointestinal/Abdomen GI Exam: Soft, Non-Tender, Bowel Sounds Present Extremeties Extremities Exam: No Edema Assessment/Plan Problem List: (1) ESRD (end stage renal disease) Plan: Patient just started training on peritoneal dialysis however he is having hemorrhage in the right kidney s/p embolization 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 Started on HD. Will need out patient HD arrangements. Hgb. is stable, Coumadin is on hold. Will need to ask Cardiology about the need for Coumadin. (2) Hemorrhage of right kidney Plan: Patient is s/p embolization rt kidney Urology Dr. Villalobos he will follow as out patient (3) Afib Plan: He was on Coumadin which is being held (4) DM (diabetes mellitus) Plan: Continue to monitor BG higher on steroids (5) HTN (hypertension) Plan: Monitor blood pressure Lidya Villa MD Sep 03, 2016 15:47
[2016-09-03] MEDS: TEMAZEPAM 15 MG CAP PO PRN (21:25)
[2016-09-03] MEDS: METOPROLOL TARTRATE 25 MG TAB PO SCH (21:25)
[2016-09-04] VITALS (24 sets, daily range): BP systolic 142–159; BP diastolic 77–96; PULSE 46–100; RESP 18–20; TEMP 97.6–98.6; O2SAT 96–98
[2016-09-04 06:21] LABS: HEMATOCRIT 24.2 % (39.0-51.0); MEAN CELL VOLUME 90.7 FL (80.0-100.0); MEAN CORPUSCULAR HGB CONC 33.1 % (32.0-36.0); PLATELET COUNT 97 TH/MM3 (150-450); RED BLOOD COUNT 2.67 MIL/MM3 (4.50-5.90); RED CELL DISTRIBUTION WIDTH 16.1 % (11.6-17.2); WHITE BLOOD COUNT 4.7 TH/MM3 (4.0-11.0)
[2016-09-04 06:26] LABS: REVIEW FLAG FINAL
[2016-09-04] MEDS: glipiZIDE 5 MG TAB PO SCH ×2 (06:26→18:01)
[2016-09-04] MEDS: INSULIN ASPART SUPPLEMENTAL SCALE SQ SCH ×4 (06:29→21:25)
[2016-09-04] MEDS: methylPREDNISolone SOD SUCC 125 MG/2 ML VIAL IV PUSH SCH ×2 (08:03→21:21)
[2016-09-04] MEDS: DOXAZOSIN MESYLATE 4 MG TAB PO SCH (08:04)
[2016-09-04] MEDS: METOPROLOL TARTRATE 25 MG TAB PO SCH ×3 (08:04→21:21)
[2016-09-04] MEDS: PRAVASTATIN SOD 40 MG TAB PO SCH (08:04)
[2016-09-04] MEDS: DOCUSATE SODIUM 50 MG/SENNA 8.6 MG TAB PO SCH ×2 (08:04→21:00)
[2016-09-04] MEDS: SODIUM CHLOR 0.9% 1000 ML INJ 1,000 ML IV PRN (08:59)
[2016-09-04] MEDS: HEPARIN SODIUM - IV 10,000 UNITS/10 ML VIAL PRN (08:59)
[2016-09-04] MEDS: EPOETIN ALFA 10,000 UNITS/ML VIAL IV PRN (09:00)
[2016-09-04] MEDS: GENTAMICIN SULFATE (DIALYSIS USE ONLY) 20 MG/2 ML VIAL IV PRN (09:00)
--- NOTE | 2016-09-04 10:37 | HHI.PR ---
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 He is very anxious to go home. Denies any pain. Patient had bradycardia last night. He denies any chest pain, shortness of breathing, lightheadedness or dizziness or palpitation. Patient stated that he feels great. Objective Vitals Vital Signs Date Time Temp Pulse Resp B/P Pulse Ox O2 Delivery O2 Flow Rate FiO2 09/04/16 08:00 46 09/04/16 07:40 98 Room Air 09/04/16 07:38 98.5 46 20 155/77 98 09/04/16 07:00 70 09/04/16 06:00 65 09/04/16 05:00 68 09/04/16 04:00 97 Room Air 09/04/16 04:00 97.6 65 18 159/86 97 09/04/16 04:00 66 09/04/16 03:00 60 09/04/16 02:00 52 09/04/16 01:00 66 09/04/16 00:00 63 09/03/16 23:00 63 09/03/16 23:00 97.9 61 18 139/84 97 09/03/16 22:00 84 09/03/16 21:00 84 09/03/16 20:00 97.6 66 18 153/84 97 09/03/16 20:00 67 09/03/16 19:00 92 09/03/16 18:05 86 09/03/16 17:59 80 09/03/16 17:00 88 09/03/16 16:00 97 Room Air 09/03/16 16:00 86 09/03/16 15:30 97.9 86 20 155/91 95 09/03/16 15:00 86 09/03/16 14:20 96 09/03/16 14:00 80 09/03/16 13:30 69 09/03/16 12:00 95 Room Air 09/03/16 12:00 70 09/03/16 11:00 69 18 155/84 97 09/03/16 11:00 88 I/O 09/03/16 09/03/16 09/03/16 09/04/16 09/04/16 09/04/16 06:59 14:59 22:59 06:59 14:59 22:59 Intake Total 240 ml 300 ml 240 ml Output Total 500 ml 250 ml 225 ml Balance -260 ml 50 ml 15 ml Intake Oral 240 ml 300 ml 240 ml Output Urine Total 500 ml 250 ml 225 ml Stool Total 0 ml # Bowel Movements 1 Result Diagram: 09/04/16 0515 09/03/16 0525 Objective Remarks GENERAL: in NAD SKIN: right IJ HEAD: Normocephalic. EYES: No scleral icterus. No injection or drainage. NECK: Supple, trachea midline. No JVD or lymphadenopathy. CARDIOVASCULAR: Regular rate and rhythm without murmurs, gallops, or rubs. RESPIRATORY: Breath sounds equal bilaterally. No accessory muscle use. GASTROINTESTINAL: Abdomen soft, non-tender, nondistended. permacath MUSCULOSKELETAL: No cyanosis, or edema. BACK: Nontender without obvious deformity. No CVA tenderness. Medications and IVs Current Medications Ketorolac Tromethamine (Toradol Inj) 30 mg ONCE ONCE IVP Last administered on 08/29/16 08:18; Start 08/29/16 at 08:00; Stop 08/29/16 at 08:01; Status DC Ondansetron HCl (Zofran Inj) 4 mg ONCE ONCE IVP Last administered on 08:18; Start 08/29/16 at 08:00; Stop 08/29/16 at 08:01; Status DC Sodium Chloride 2 ml 2 ml UNSCH PRN IVF FLUSH AFTER USING IV ACCESS; Start 02/03 at 08:00; Stop 08/29/16 at 12:38; Status DC Sodium Chloride (NS 1000 ml Inj) 1,000 ml @ 1,000 mls/hr Q1H ONCE IV Last administered on 08/29/16 08:17; Start 08/29/16 at 07:48; Stop 08/29/16 at 08:47 ; Status DC Hydromorphone HCl (Dilaudid Pf Inj) 0.5 mg ONCE ONCE IVS Last administered on 08/29/16 08:17; Start 08/29/16 at 08:00; Stop 08/29/16 at 08:01; Status DC Iodixanol 75 ml 75 ml STK-MED ONCE IV Last administered on 08/29/16 09:50; Start 08/29/16 at 09:50; Stop 08/29/16 at 09:51; Status DC Phytonadione 10 mg/Sodium Chloride 51 ml @ 100 mls/hr ONCE ONCE IV Last administered on 08/29/16 11:23; Start 08/29/16 at 10:30; Stop 08/29/16 at 11:01 ; Status DC Prothrombin Complex Concent (Human)/Syringe / Bag (Kcentra Inj/ Syringe/Bag) 0 ml @ 500 mls/hr ONCE ONCE IV Last administered on 08/29/16 11:22; Start 08/29 at 11:00; Stop 08/29/16 at 11:01; Status DC Insulin Human Regular (NovoLIN R INJ) 5 units ONCE ONCE IV PUSH Last administered on 08/29/16 11:01; Start 08/29/16 at 10:45; Stop 08/29/16 at 10:52 ; Status DC Dextrose (D50w (Vial) Inj) 50 ml ONCE ONCE IV PUSH Last administered on 10:54; Start 08/29/16 at 10:45; Stop 08/29/16 at 10:52; Status DC Sodium Bicarbonate (Sodium Bicarbonate 8.4% Inj) 50 meq ONCE ONCE SLOW IVP Last administered on 08/29/16 11:04; Start 08/29/16 at 10:45; Stop 08/29/16 at 10:53; Status DC Albuterol Sulfate (Albuterol Concentrated Neb) 10 mg ONCE ONCE INH Last administered on 08/29/16 10:49; Start 08/29/16 at 10:45; Stop 08/29/16 at 10:52 ; Status DC Sodium Chloride (NS Flush) 2 ml UNSCH PRN IV FLUSH FLUSH AFTER USING IV ACCESS ; Start 08/29/16 at 12:15 Sodium Chloride (NS Flush) 2 ml BID IV FLUSH Last administered on 09/03/16 21: 25; Start 08/29/16 at 21:00 Acetaminophen (Tylenol) 650 mg Q4H PRN PO TEMP > 100.4; Start 08/29/16 at 12:15 Ondansetron HCl (Zofran Inj) 4 mg Q6H PRN IVP NAUSEA OR VOMITING; Start at 12:15 Temazepam (Restoril) 15 mg HS PRN PO INSOMNIA Last administered on 09/03/16 21 :25; Start 08/29/16 at 12:15 Senna/Docusate Sodium (Jennifer-Colace) 1 tab BID PO Last administered on 21:25; Start 08/29/16 at 21:00 Magnesium Hydroxide (Milk Of Magnesia Liq) 30 ml Q12H PRN PO MILD - MODERATE CONSTIPATION; Start 08/29/16 at 12:15 Sennosides (Senokot) 17.2 mg Q12H PRN PO MODERATE - SEVERE CONSTIPATION; Start 08/29/16 at 12:15 Bisacodyl (Dulcolax Supp) 10 mg DAILY PRN RECTAL SEVERE CONSITIPATION; Start at 12:15 Lactulose (Lactulose Liq) 30 ml DAILY PRN PO SEVERE CONSITIPATION; Start at 12:15 Doxazosin Mesylate (Cardura) 4 mg DAILY PO Last administered on 09/04/16 08:04 ; Start 08/30/16 at 09:00 Metoprolol Tartrate (Lopressor) 50 mg BID PO Last administered on 09/02/16 08: 39; Start 08/29/16 at 21:00; Stop 09/02/16 at 17:22; Status DC Pravastatin Sodium (Pravachol) 40 mg DAILY PO Last administered on 09/04/16 08 :04; Start 08/30/16 at 09:00 Hydralazine HCl (Apresoline) 10 mg Q6HR PRN PO SBP>160, DBP>90; Start 08/29/16 at 12:30 Hydralazine HCl (Apresoline Inj) 20 mg Q4H PRN IV PUSH SBP>160, DBP>90; Start 08/29/16 at 12:30 Hydromorphone HCl (Dilaudid Pf Inj) 0.5 mg Q4H PRN IV PUSH pain 2-10; Start 02/03 at 14:30 Hydromorphone HCl (Dilaudid Pf Inj) 1 mg Q4H PRN IV PUSH breakthrough pain ; Start 08/29/16 at 14:30 Acetaminophen/ Hydrocodone Bitart 1 tab 1 tab Q4H PRN PO pain 2-10 Last administered on 08/31/16 00:26; Start 08/29/16 at 14:30 Sodium Chloride 1,000 ml @ 0 mls/hr Q0M PRN IV For Prime & Rinse Back Last administered on 09/04/16 08:59; Start 08/29/16 at 20:16 Sodium Chloride 1,000 ml @ 200 mls/hr Q5H PRN IV WITH DIALYSIS; Start 08/29/16 at 20:16 Sodium Chloride (NS 1000 ml Inj) 1,000 ml @ 0 mls/hr Q0M PRN IV WITH DIALYSIS; Start 08/29/16 at 20:16 Mannitol (Mannitol Inj) 12.5 gm UNSCH PRN IV WITH DIALYSIS; Start 08/29/16 at 20:30 Albumin Human (Albumin 25% Inj) 25 gm UNSCH PRN IV WITH DIALYSIS; Start at 20:30 Sodium Chloride (NS Flush) 5 ml UNSCH PRN IV FLUSH WITH DIALYSIS; Start at 20:30 Heparin Sodium (Porcine) (Heparin Inj) UNSCH PRN .XX WITH DIALYSIS Last administered on 09/04/16 08:59; Start 08/29/16 at 20:30 Gentamicin Sulfate (Gentamicin (Dialysis) Inj) 20 mg UNSCH PRN IV WITH DIALYSIS Last administered on 09/04/16 09:00; Start 08/29/16 at 20:30 Ondansetron HCl (Zofran Inj) 4 mg UNSCH PRN IV WITH DIALYSIS; Start 08/29/16 at 20:30 Acetaminophen (Tylenol) 650 mg UNSCH PRN PO for headach,temp > 101F; Start 02/03 at 20:30 Diphenhydramine HCl (Benadryl) 25 mg UNSCH PRN PO for hives/itching/anaphylaxis ; Start 08/29/16 at 20:30 Nitroglycerin (Nitrostat Sl) 0.4 mg UNSCH PRN SL CHEST PAIN; Start 08/29/16 at 20:30 Clonidine (Catapres) 0.1 mg UNSCH PRN PO for BP > 180/100 X 2 readings; Start 08/29/16 at 20:30 Epoetin Brandon (Epogen Inj) 10,000 units UNSCH PRN IV WITH DIALYSIS Last administered on 09/04/16 09:00; Start 08/29/16 at 20:30 Gelatin (Gelfoam 12 Mm/7 Mm Top) 1 foam UNSCH PRN TOP SEE LABEL COMMENTS; Start 08/29/16 at 20:30 Midazolam HCl (Versed Inj) 5 mg STK-MED ONCE .ROUTE Last administered on 09:50; Start 08/30/16 at 09:28; Stop 08/30/16 at 09:29; Status DC Fentanyl Citrate (fentaNYL INJ) 250 mcg STK-MED ONCE .ROUTE Last administered on 08/30/16 09:50; Start 08/30/16 at 09:28; Stop 08/30/16 at 09:29; Status DC Heparin Sodium (Porcine) (*HEPARIN INJ Periprocedural ONLY) 10,000 units STK- MED ONCE .ROUTE Last administered on 08/30/16 10:02; Start 08/30/16 at 10:02; Stop 08/30/16 at 10:03; Status DC Iohexol (OMNIPAQUE 350 INJ (Manager Of Financial Reporting)) 48 ml STK-MED ONCE .XX Last administered on 08/30/16 11:34; Start 08/30/16 at 11:34; Stop 08/30/16 at 11:35 ; Status DC Gelatin (Gelfoam 12 Mm/7 Mm Top) 1 foam STK-MED ONCE I-ARTERIAL Last administered on 08/30/16 11:35; Start 08/30/16 at 11:35; Stop 08/30/16 at 11:36 ; Status DC Methylprednisolone Sodium Succinate (SoluMEDROL INJ) 60 mg Q12HR IV PUSH Last administered on 09/04/16 08:03; Start 08/31/16 at 09:00 Insulin Aspart (NovoLOG SUPPLEMENTAL SCALE) 1 ACHS SLIDING SCALE SQ Last administered on 09/04/16 06:29; Start 08/31/16 at 16:00 Dextrose (D50w (Vial) Inj) 25 ml UNSCH PRN IV PUSH HYPOGLYCEMIA - SEE COMMENTS ; Start 08/31/16 at 14:15 Glucagon (Glucagon Inj) 1 mg UNSCH PRN OTHER HYPOGLYCEMIA-SEE COMMENTS; Start 08/31/16 at 14:15 Glipizide (Glucotrol) 5 mg BIDAC PO Last administered on 09/04/16 06:26; Start 09/02/16 at 17:30 Metoprolol Tartrate 25 mg 25 mg BID PO Last administered on 09/02/16 20:32; Start 09/02/16 at 21:00; Stop 09/03/16 at 11:34; Status DC Vancomycin HCl 1000 mg/Sodium Chloride 250 ml @ 250 mls/hr GLOBAL CMO IV Last administered on 09/03/16 11:09; Start 09/03/16 at 08:15; Stop 09/07/16 at 08:14 Cefazolin Sodium/ Dextrose (Ancef 2 Gm Premix) 50 ml @ 100 mls/hr GLOBAL CMO IV Last administered on 09/03/16 11:09; Start 09/03/16 at 08:15; Stop 09/07/16 at 08:14 Epinephrine HCl (EPINEPHrine (1:10,000) INJ) 1 mg STK-MED ONCE .ROUTE ; Start at 11:29; Stop 09/03/16 at 11:30; Status DC Atropine Sulfate (Atropine Inj) 1 mg STK-MED ONCE .ROUTE ; Start 09/03/16 at 11: 30; Stop 09/03/16 at 11:31; Status DC Metoprolol Tartrate (Lopressor) 12.5 mg Q12HR PO Last administered on 21:25; Start 09/03/16 at 21:00 Midazolam HCl (Versed Inj) 5 mg STK-MED ONCE .ROUTE Last administered on 11:34; Start 09/03/16 at 11:34; Stop 09/03/16 at 11:35; Status DC Fentanyl Citrate (fentaNYL INJ) 250 mcg STK-MED ONCE .ROUTE Last administered on 09/03/16 11:35; Start 09/03/16 at 11:35; Stop 09/03/16 at 11:36; Status DC Atropine Sulfate (Atropine Inj) 1 mg STK-MED ONCE .ROUTE ; Start 09/03/16 at 11: 47; Stop 09/03/16 at 11:48; Status DC Miscellaneous (Pill Splitter) 1 ea UNSCH PRN OTHER SEE LABEL COMMENTS; Start at 12:00 Heparin Sodium (Porcine) (*HEPARIN INJ Periprocedural ONLY) 10,000 units STK- MED ONCE .ROUTE Last administered on 09/03/16 12:18; Start 09/03/16 at 12:18; Stop 09/03/16 at 12:19; Status DC Lidocaine/ Epinephrine (Xylocaine-Epi 1%-1:100,000 Inj) 20 ml STK-MED ONCE .ROUTE Last administered on 09/03/16t 12:18; Start 09/03/16 at 12:18; Stop at 12:19; Status DC Sodium Chloride (NS Flush) UNSCH PRN IVF SEE PROTOCOL; Start 09/03/16 at 13:30 Heparin Sodium (Porcine) (Heparin Inj) UNSCH PRN IV FLUSH SEE PROTOCOL; Start 09/03/16 at 13:30 A/P Problem List: (1) ESRD (end stage renal disease) ICD Code: N18.6 Status: Chronic (2) HTN (hypertension) ICD Code: I10 Status: Chronic (3) DM (diabetes mellitus) ICD Code: E11.9 Status: Chronic (4) Afib ICD Code: I48.91 Status: Chronic (5) Hemorrhage of right kidney ICD Code: N28.89 Status: Acute Assessment and Plan 76 yo male with PMH of HTN, Afib on Coumadin. HLD came to the ED for evaluation of right flank pain, sharp radiating to hid buttocks getting worse. Patient is following with Dr. Allen mei for PD and is currently in training. End stage renal disease - Nephrology consulted, possible vasculitis, bronchitis inserted, continue dialysis per nephrology. - Status post PD catheter placement. Right IJ vas cath placed temporarily. 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 -s/p PermCath placed 09/05 Hemorrhage of the right kidney, possible vasculitis. - Status post Gelfoam and coil embolization of right renal artery by IR 08/30. - [place] [facility] following. Suspecting Polyarteritis Nodosa. -Hemoglobin has been stable. Patient was started on Solu-Medrol. Continue management per sign manufacturer. Atrial fibrillation, chronic -Coumadin on hold for now. INR subtherapeutic, continue metoprolol. -Per sign manufacturer will need to flooring grader in regards to need for restarting Coumadin. Patient's flooring grader is Dr. Porter. Consult placed. Bradycardia -Patient had episodes of bradycardia and brief pause. Will consult his flooring grader for further management. Will hold metoprolol. Type 2 diabetes mellitus - Continue to monitor, statin scale insulin, oral hypoglycemics on hold. Anemia-hemoglobin stable -status post transfusion 1 unit PRBC on 09/01. -Hemoglobin stable. Hypertension, chronic: Controlled. Continue Cardura and metoprolol. Dyslipidemia, chronic: Continue Pravastatin. DVT prophylaxis: SCDs, pharmacological prophylaxis contraindicated because of recent bleed. Rowena Napoles MD Sep 04, 2016 10:37
[2016-09-04] MEDS: SODIUM CHLORIDE 0.9% FLUSH 10 ML FLUSH IV FLUSH SCH ×2 (12:03→21:21)
--- NOTE | 2016-09-04 14:56 | HHI.NPPN ---
Subjective History of Present Illness hx of Right renal hemorrhage Additional Remarks Patient is alert, feeling better, no SOB, no dizziness. Objective Data Data 09/03/16 09/04/16 18:59 06:59 Intake Total 300 ml 240 ml Output Total 250 ml 225 ml Balance 50 ml 15 ml Intake Oral 300 ml 240 ml Output Urine Total 250 ml 225 ml # Bowel Movements 1 Vital Signs Date Time Temp Pulse Resp B/P Pulse Ox O2 Delivery O2 Flow Rate FiO2 09/04/16 13:00 76 09/04/16 12:06 98.6 100 20 150/96 98 09/04/16 12:00 100 09/04/16 08:00 46 09/04/16 07:40 98 Room Air 09/04/16 07:38 98.5 46 20 155/77 98 09/04/16 07:00 66 09/04/16 07:00 70 09/04/16 06:00 65 09/04/16 05:00 68 09/04/16 04:00 97 Room Air 09/04/16 04:00 97.6 65 18 159/86 97 09/04/16 04:00 66 09/04/16 03:00 60 09/04/16 02:00 52 09/04/16 01:00 66 09/04/16 00:00 63 09/03/16 23:00 63 09/03/16 23:00 97.9 61 18 139/84 97 09/03/16 22:00 84 09/03/16 21:00 84 09/03/16 20:00 97.6 66 18 153/84 97 09/03/16 20:00 67 09/03/16 19:00 92 09/03/16 18:05 86 09/03/16 17:59 80 09/03/16 17:00 88 09/03/16 16:00 97 Room Air 09/03/16 16:00 86 09/03/16 15:30 97.9 86 20 155/91 95 09/03/16 15:00 86 -: 09/04/16 0515 09/03/16 0525 Physical Exam General Appearance: Well Developed, Well Nourished Neck Neck Exam: Neck Supple Pulmonary Resp Exam: Clear Bilaterally, Breath Sounds Equal Cardiology CV Exam: Regular, Normal Sinus Rhythm Gastrointestinal/Abdomen GI Exam: Soft, Non-Tender, Bowel Sounds Present Extremeties Extremities Exam: No Edema Assessment/Plan Problem List: (1) ESRD (end stage renal disease) Plan: Patient just started training on peritoneal dialysis however he is having hemorrhage in the right kidney s/p embolization 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 Started on HD. Will need out patient HD arrangements. I spoke to Lil[facility] at [facility]. HD done today and tolerated well. Has Bradycardia,and cardiology following. (2) Hemorrhage of right kidney Plan: Patient is s/p embolization rt kidney Urology Dr. Villalobos he will follow as out patient (3) Afib Plan: He was on Coumadin which is being held (4) DM (diabetes mellitus) Plan: Continue to monitor BG higher on steroids (5) HTN (hypertension) Plan: Monitor blood pressure Problem Qualifiers (1) DM (diabetes mellitus): (2) HTN (hypertension): Qualified Code: I10 - Essential hypertension Lidya Villa MD Sep 04, 2016 14:56
--- NOTE | 2016-09-04 15:09 | MB ---
cc: THU JOSHI MD DATE OF CONSULTATION 09/04/2016 REASON FOR CONSULTATION Atrial fibrillation. HISTORY OF PRESENT ILLNESS Mr. Sheridan is a 76-year-old man who does have a history CABG x2 and with a Maze procedure. The patient is status post renal hemorrhage with coil embolization of the right renal artery on August 30, 2016. He subsequently has had episodes of bradycardia. Cardiology was subsequently consulted for assistance with his management of this and Coumadin management as well. PAST MEDICAL HISTORY Significant for: 1. Hypertension. 2. Hyperlipidemia. 3. Diabetes. 4. Coronary artery disease with CABG. 5. Atrial fibrillation with Maze procedure and subsequent atrial fibrillation ablation. 6. End-stage renal disease. 7. Benign prostatic hypertrophy. MEDICATIONS Outpatient medications include: 1. Doxazosin. 2. Pravastatin. 3. Glipizide. 4. Metoprolol 50 mg b.i.d. Current medications are per the record. ALLERGIES NO KNOWN DRUG ALLERGIES. FAMILY HISTORY Significant for CHF. SOCIAL HISTORY The patient is and does not smoke. REVIEW OF SYSTEMS Except as mentioned in HPI all 12 systems are negative. PHYSICAL EXAMINATION VITAL SIGNS: 98.6, 76, 20, 150/96. GENERAL: He is a well appearing who is in no apparent distress. NECK: Free from JVD. LUNGS: Bilaterally clear to auscultation. CARDIOVASCULAR: On examination he has a normal S1-S2. Rhythm is irregular. ABDOMEN: Soft. EXTREMITIES: Are free from any edema. LABORATORY DATA Laboratory values are significant for hemoglobin 8.0 and a creatinine of 4.77. Telemetry - does show atrial fibrillation. The patient did have bradycardia and the longest pause was 3.5 seconds and transient. He did have an episode with a heart rate around 30. The patient indicates last night at that time he was asymptomatic. IMPRESSIONS Atrial fibrillation - the patient was on metoprolol XL 50 mg daily. He was subsequently decreased to metoprolol tartrate 25 mg b.i.d. on the . Within the last 24 hours decreased to 12.5 milligrams. The patient was on the long-acting and this will take several days to clear his system, particularly with his renal insufficiency. Thus at this point I do not think the patient is truly equilibrated at baseline. Additionally he was asymptomatic. While it is reasonable to leave him on the 12.5 twice a day, I do believe he merits further observation at least overnight. With regard to the Coumadin the patient does obviously have indication for Coumadin therapy. Radiology was contacted and asked if it was reasonable for the patient to start on Coumadin. The initiation of Coumadin therapy would be per the primary team. My office would be happy to follow him as an outpatient in this regard. Thu Joshi M.D. LACHELLE/PANCHO /1:52 PM /2:55 PM
[2016-09-04] MEDS: TEMAZEPAM 15 MG CAP PO PRN (21:26)
[2016-09-04] MEDS ORDERED: WARFARIN SOD 2.5 MG TAB PO ONE (22:00)
[2016-09-05] VITALS (18 sets, daily range): BP systolic 145–188; BP diastolic 72–103; PULSE 50–74; RESP 18; TEMP 97.7–98.6; O2SAT 96–100
[2016-09-05] MEDS: INSULIN ASPART SUPPLEMENTAL SCALE SQ SCH ×3 (07:00→17:03)
--- NOTE | 2016-09-05 07:46 | PD.CARD.PN ---
Subjective Subjective Remarks Pt without complaints Objective Medications Current Medications Medications (Trade) Dose Ordered Sig/Yamilet Route Start Time Stop Time Status Last Admin (NS Flush) 2 ml UNSCH PRN IV FLUSH 08/29/16 12:15 (NS Flush) 2 ml BID IV FLUSH 08/29/16 21:00 09/04/16 21:21 (Tylenol) 650 mg Q4H PRN PO 08/29/16 12:15 (Zofran Inj) 4 mg Q6H PRN IVP 08/29/16 12:15 (Restoril) 15 mg HS PRN PO 08/29/16 12:15 09/04/16 21:26 (Jennifer-Colace) 1 tab BID PO 08/29/16 21:00 09/03/16 21:25 (Milk Of Magnesia Liq) 30 ml Q12H PRN PO 08/29/16 12:15 (Senokot) 17.2 mg Q12H PRN PO 08/29/16 12:15 (Dulcolax Supp) 10 mg DAILY PRN RECTAL 08/29/16 12:15 (Lactulose Liq) 30 ml DAILY PRN PO 08/29/16 12:15 (Cardura) 4 mg DAILY PO 08/30/16 09:00 09/04/16 08:04 (Pravachol) 40 mg DAILY PO 08/30/16 09:00 09/04/16 08:04 (Apresoline) 10 mg Q6HR PRN PO 08/29/16 12:30 (Apresoline Inj) 20 mg Q4H PRN IV PUSH 08/29/16 12:30 (Dilaudid Pf Inj) 0.5 mg Q4H PRN IV PUSH 08/29/16 14:30 (Dilaudid Pf Inj) 1 mg Q4H PRN IV PUSH 08/29/16 14:30 Acetaminophen/ Hydrocodone Bitart 1 tab 1 tab Q4H PRN PO 08/29/16 14:30 08/31/16 00:26 Sodium Chloride 1,000 ml @ 0 mls/hr Q0M PRN IV 08/29/16 20:16 09/04/16 08:59 Sodium Chloride 1,000 ml @ 200 mls/hr Q5H PRN IV 08/29/16 20:16 (NS 1000 ml Inj) 1,000 ml @ 0 mls/hr Q0M PRN IV 08/29/16 20:16 (Mannitol Inj) 12.5 gm UNSCH PRN IV 08/29/16 20:30 (Albumin 25% Inj) 25 gm UNSCH PRN IV 08/29/16 20:30 (NS Flush) 5 ml UNSCH PRN IV FLUSH 08/29/16 20:30 (Heparin Inj) UNSCH PRN .XX 08/29/16 20:30 09/04/16 08:59 (Gentamicin (Dialysis) Inj) 20 mg UNSCH PRN IV 08/29/16 20:30 09/04/16 09:00 (Zofran Inj) 4 mg UNSCH PRN IV 08/29/16 20:30 (Tylenol) 650 mg UNSCH PRN PO 08/29/16 20:30 (Benadryl) 25 mg UNSCH PRN PO 08/29/16 20:30 (Nitrostat Sl) 0.4 mg UNSCH PRN SL 08/29/16 20:30 (Catapres) 0.1 mg UNSCH PRN PO 08/29/16 20:30 (Epogen Inj) 10,000 units UNSCH PRN IV 08/29/16 20:30 09/04/16 09:00 (Gelfoam 12 Mm/7 Mm Top) 1 foam UNSCH PRN TOP 08/29/16 20:30 (SoluMEDROL INJ) 60 mg Q12HR IV PUSH 08/31/16 09:00 09/04/16 21:21 (D50w (Vial) Inj) 25 ml UNSCH PRN IV PUSH 08/31/16 14:15 (Glucagon Inj) 1 mg UNSCH PRN OTHER 08/31/16 14:15 (Glucotrol) 5 mg BIDAC PO 09/02/16 17:30 09/04/16 18:01 (Lopressor) 12.5 mg Q12HR PO 09/03/16 21:00 09/04/16 21:21 (Pill Splitter) 1 ea UNSCH PRN OTHER 09/03/16 12:00 (NS Flush) UNSCH PRN IVF 09/03/16 13:30 Heparin Sodium (Porcine) UNSCH PRN IV FLUSH 09/03/16 13:30 (Coumadin Consult Pharmacy) 0 ml @ 0 mls/hr UNSCH OTHER 09/04/16 20:30 Vital Signs / I&O Vital Signs Date Time Temp Pulse Resp B/P Pulse Ox O2 Delivery O2 Flow Rate FiO2 09/05/16 06:00 70 09/05/16 05:00 70 09/05/16 04:00 98.6 60 18 145/89 96 09/05/16 04:00 65 09/05/16 03:00 70 09/05/16 02:00 64 09/05/16 01:00 66 09/05/16 00:00 98.6 60 18 145/77 96 09/05/16 00:00 62 09/04/16 23:00 64 09/04/16 22:21 21 09/04/16 22:07 98 Room Air 09/04/16 22:00 64 09/04/16 21:00 70 09/04/16 20:00 98.6 97 18 142/91 96 09/04/16 20:00 96 09/04/16 19:00 68 09/04/16 18:00 60 09/04/16 17:00 73 09/04/16 16:00 80 09/04/16 15:30 98.5 73 18 152/78 96 09/04/16 15:00 100 09/04/16 14:00 90 09/04/16 13:00 76 09/04/16 12:06 98.6 100 20 150/96 98 09/04/16 12:00 100 09/04/16 08:00 46 I/O 09/04/16 09/04/16 09/04/16 09/05/16 09/05/16 09/05/16 07:00 15:00 23:00 07:00 15:00 23:00 Intake Total 240 ml 890 ml 240 ml Output Total 225 ml 2500 ml 3000 ml 350 ml Balance 15 ml -2500 ml -2110 ml -110 ml Intake Oral 240 ml 890 ml 240 ml Output Urine Total 225 ml 500 ml 350 ml Hemodialysis 2500 ml 2500 ml # Bowel Movements 1 Physical Exam GENERAL: Well developed, well nourished. No acute distress. HEENT: Jugular venous pressure is normal. CHEST: Lungs clear to auscultation bilaterally. Unlabored respiratory effort. CARDIAC: irregular rate and rhythm without S3, S4, or murmur. ABDOMEN: Soft, nontender, no hepatosplenomegaly. Bowel sounds present. EXTREMITIES: No clubbing, cyanosis, or edema. Assessment and Plan Assessment and Plan AF- fair rate control, a bit christianne over night -on coumadin -reasonable for d/c with close follow up Renal art bleed- s/p coil, CKD-on dialysis per nephro dispo- ok for d/c Rosanne Porter MD Sep 05, 2016 07:45
[2016-09-05] MEDS: SODIUM CHLORIDE 0.9% FLUSH 10 ML FLUSH IV FLUSH SCH (09:00)
[2016-09-05] MEDS: DOCUSATE SODIUM 50 MG/SENNA 8.6 MG TAB PO SCH (09:00)
[2016-09-05] MEDS: DOXAZOSIN MESYLATE 4 MG TAB PO SCH (09:00)
[2016-09-05] MEDS: methylPREDNISolone SOD SUCC 125 MG/2 ML VIAL IV PUSH SCH (09:10)
[2016-09-05] MEDS: glipiZIDE 5 MG TAB PO SCH ×2 (09:10→16:58)
[2016-09-05] MEDS: PRAVASTATIN SOD 40 MG TAB PO SCH (09:10)
[2016-09-05] MEDS: METOPROLOL TARTRATE 25 MG TAB PO SCH (09:11)
--- NOTE | 2016-09-05 10:02 | HHI.PR ---
Subjective Remarks Follow-up for renal hemorrhage Patient has no complaints. Deny any pain. He is very anxious to go home. Episode bradycardia over telemetry. Deny any chest pain, shortness of breathing, palpitation, lightheadedness or dizziness. Objective Vitals Vital Signs Date Time Temp Pulse Resp B/P Pulse Ox O2 Delivery O2 Flow Rate FiO2 09/05/16 06:00 70 09/05/16 05:00 70 09/05/16 04:00 98.6 60 18 145/89 96 09/05/16 04:00 65 09/05/16 03:00 70 09/05/16 02:00 64 09/05/16 01:00 66 09/05/16 00:00 98.6 60 18 145/77 96 09/05/16 00:00 62 09/04/16 23:00 64 09/04/16 22:21 21 09/04/16 22:07 98 Room Air 09/04/16 22:00 64 09/04/16 21:00 70 09/04/16 20:00 98.6 97 18 142/91 96 09/04/16 20:00 96 09/04/16 19:00 68 09/04/16 18:00 60 09/04/16 17:00 73 09/04/16 16:00 80 09/04/16 15:30 98.5 73 18 152/78 96 09/04/16 15:00 100 09/04/16 14:00 90 09/04/16 13:00 76 09/04/16 12:06 98.6 100 20 150/96 98 09/04/16 12:00 100 I/O 09/04/16 09/04/16 09/04/16 09/05/16 09/05/16 09/05/16 07:00 15:00 23:00 07:00 15:00 23:00 Intake Total 240 ml 890 ml 240 ml Output Total 225 ml 2500 ml 3000 ml 350 ml Balance 15 ml -2500 ml -2110 ml -110 ml Intake Oral 240 ml 890 ml 240 ml Output Urine Total 225 ml 500 ml 350 ml Hemodialysis 2500 ml 2500 ml # Bowel Movements 1 Result Diagram: 09/04/16 0515 09/03/16 0525 Imaging Last Impressions Catheter Placement X-Ray 09/03/16 0000 Signed Impressions: Service Date/Time: Saturday, September 03, 2016 12:05 - CONCLUSION: Uncomplicated PermaCath placement as above. Shekhar Wynn MD Renal Arteriogram 08/30/16 0000 Signed Impressions: Service Date/Time: August 09:40 - CONCLUSION: 1. 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 The right renal artery pseudoaneurysms are more prominent in size with multiple foci of active hemorrhage. Therefore, right renal artery embolization was performed with coils and Gelfoam, as above. 2. Recommend clinical evaluation for vasculitis, particularly MILLAN. Shekhar Wynn MD Abdomen/Pelvis CT 08/29/16 0908 Signed Impressions: Service Date/Time: Monday, August 29, 2016 09:23 - CONCLUSION: Normal renal tissue is not identified on the right side and the right kidney is basically replaced with mixed density material probably hemorrhage with active extravasation in the right lower pole and perinephric infiltration also mostly representing hemorrhage. It is very difficult to exclude underlying malignancy either as a solid mass or infiltrating malignancy at this time. Rogers Gunn MD Objective Remarks GENERAL: in NAD SKIN: right IJ HEAD: Normocephalic. EYES: No scleral icterus. No injection or drainage. NECK: Supple, trachea midline. No JVD or lymphadenopathy. CARDIOVASCULAR: Regular rate and rhythm without murmurs, gallops, or rubs. RESPIRATORY: Breath sounds equal bilaterally. No accessory muscle use. GASTROINTESTINAL: Abdomen soft, non-tender, nondistended. permacath MUSCULOSKELETAL: No cyanosis, or edema. BACK: Nontender without obvious deformity. No CVA tenderness. Medications and IVs Current Medications Ketorolac Tromethamine (Toradol Inj) 30 mg ONCE ONCE IVP Last administered on 08/29/16 08:18; Start 08/29/16 at 08:00; Stop 08/29/16 at 08:01; Status DC Ondansetron HCl (Zofran Inj) 4 mg ONCE ONCE IVP Last administered on 08:18; Start 08/29/16 at 08:00; Stop 08/29/16 at 08:01; Status DC Sodium Chloride 2 ml 2 ml UNSCH PRN IVF FLUSH AFTER USING IV ACCESS; Start 02/03 at 08:00; Stop 08/29/16 at 12:38; Status DC Sodium Chloride (NS 1000 ml Inj) 1,000 ml @ 1,000 mls/hr Q1H ONCE IV Last administered on 08/29/16 08:17; Start 08/29/16 at 07:48; Stop 08/29/16 at 08:47 ; Status DC Hydromorphone HCl (Dilaudid Pf Inj) 0.5 mg ONCE ONCE IVS Last administered on 08/29/16 08:17; Start 08/29/16 at 08:00; Stop 08/29/16 at 08:01; Status DC Iodixanol 75 ml 75 ml STK-MED ONCE IV Last administered on 08/29/16 09:50; Start 08/29/16 at 09:50; Stop 08/29/16 at 09:51; Status DC Phytonadione 10 mg/Sodium Chloride 51 ml @ 100 mls/hr ONCE ONCE IV Last administered on 08/29/16 11:23; Start 08/29/16 at 10:30; Stop 08/29/16 at 11:01 ; Status DC Prothrombin Complex Concent (Human)/Syringe / Bag (Kcentra Inj/ Syringe/Bag) 0 ml @ 500 mls/hr ONCE ONCE IV Last administered on 08/29/16 11:22; Start 08/29 at 11:00; Stop 08/29/16 at 11:01; Status DC Insulin Human Regular (NovoLIN R INJ) 5 units ONCE ONCE IV PUSH Last administered on 08/29/16 11:01; Start 08/29/16 at 10:45; Stop 08/29/16 at 10:52 ; Status DC Dextrose (D50w (Vial) Inj) 50 ml ONCE ONCE IV PUSH Last administered on 10:54; Start 08/29/16 at 10:45; Stop 08/29/16 at 10:52; Status DC Sodium Bicarbonate (Sodium Bicarbonate 8.4% Inj) 50 meq ONCE ONCE SLOW IVP Last administered on 08/29/16 11:04; Start 08/29/16 at 10:45; Stop 08/29/16 at 10:53; Status DC Albuterol Sulfate (Albuterol Concentrated Neb) 10 mg ONCE ONCE INH Last administered on 08/29/16 10:49; Start 08/29/16 at 10:45; Stop 08/29/16 at 10:52 ; Status DC Sodium Chloride (NS Flush) 2 ml UNSCH PRN IV FLUSH FLUSH AFTER USING IV ACCESS ; Start 08/29/16 at 12:15 Sodium Chloride (NS Flush) 2 ml BID IV FLUSH Last administered on 09/04/16 21: 21; Start 08/29/16 at 21:00 Acetaminophen (Tylenol) 650 mg Q4H PRN PO TEMP > 100.4; Start 08/29/16 at 12:15 Ondansetron HCl (Zofran Inj) 4 mg Q6H PRN IVP NAUSEA OR VOMITING; Start at 12:15 Temazepam (Restoril) 15 mg HS PRN PO INSOMNIA Last administered on 09/04/16 21 :26; Start 08/29/16 at 12:15 Senna/Docusate Sodium (Jennifer-Colace) 1 tab BID PO Last administered on 21:25; Start 08/29/16 at 21:00 Magnesium Hydroxide (Milk Of Magnesia Liq) 30 ml Q12H PRN PO MILD - MODERATE CONSTIPATION; Start 08/29/16 at 12:15 Sennosides (Senokot) 17.2 mg Q12H PRN PO MODERATE - SEVERE CONSTIPATION; Start 08/29/16 at 12:15 Bisacodyl (Dulcolax Supp) 10 mg DAILY PRN RECTAL SEVERE CONSITIPATION; Start at 12:15 Lactulose (Lactulose Liq) 30 ml DAILY PRN PO SEVERE CONSITIPATION; Start at 12:15 Doxazosin Mesylate (Cardura) 4 mg DAILY PO Last administered on 09/05/16 09:00 ; Start 08/30/16 at 09:00 Metoprolol Tartrate (Lopressor) 50 mg BID PO Last administered on 09/02/16 08: 39; Start 08/29/16 at 21:00; Stop 09/02/16 at 17:22; Status DC Pravastatin Sodium (Pravachol) 40 mg DAILY PO Last administered on 09/05/16 09 :10; Start 08/30/16 at 09:00 Hydralazine HCl (Apresoline) 10 mg Q6HR PRN PO SBP>160, DBP>90; Start 08/29/16 at 12:30 Hydralazine HCl (Apresoline Inj) 20 mg Q4H PRN IV PUSH SBP>160, DBP>90; Start 08/29/16 at 12:30 Hydromorphone HCl (Dilaudid Pf Inj) 0.5 mg Q4H PRN IV PUSH pain 2-10; Start 02/03 at 14:30 Hydromorphone HCl (Dilaudid Pf Inj) 1 mg Q4H PRN IV PUSH breakthrough pain ; Start 08/29/16 at 14:30 Acetaminophen/ Hydrocodone Bitart 1 tab 1 tab Q4H PRN PO pain 2-10 Last administered on 08/31/16 00:26; Start 08/29/16 at 14:30 Sodium Chloride 1,000 ml @ 0 mls/hr Q0M PRN IV For Prime & Rinse Back Last administered on 09/04/16 08:59; Start 08/29/16 at 20:16 Sodium Chloride 1,000 ml @ 200 mls/hr Q5H PRN IV WITH DIALYSIS; Start 08/29/16 at 20:16 Sodium Chloride (NS 1000 ml Inj) 1,000 ml @ 0 mls/hr Q0M PRN IV WITH DIALYSIS; Start 08/29/16 at 20:16 Mannitol (Mannitol Inj) 12.5 gm UNSCH PRN IV WITH DIALYSIS; Start 08/29/16 at 20:30 Albumin Human (Albumin 25% Inj) 25 gm UNSCH PRN IV WITH DIALYSIS; Start at 20:30 Sodium Chloride (NS Flush) 5 ml UNSCH PRN IV FLUSH WITH DIALYSIS; Start at 20:30 Heparin Sodium (Porcine) (Heparin Inj) UNSCH PRN .XX WITH DIALYSIS Last administered on 09/04/16 08:59; Start 08/29/16 at 20:30 Gentamicin Sulfate (Gentamicin (Dialysis) Inj) 20 mg UNSCH PRN IV WITH DIALYSIS Last administered on 09/04/16 09:00; Start 08/29/16 at 20:30 Ondansetron HCl (Zofran Inj) 4 mg UNSCH PRN IV WITH DIALYSIS; Start 08/29/16 at 20:30 Acetaminophen (Tylenol) 650 mg UNSCH PRN PO for headach,temp > 101F; Start 02/03 at 20:30 Diphenhydramine HCl (Benadryl) 25 mg UNSCH PRN PO for hives/itching/anaphylaxis ; Start 08/29/16 at 20:30 Nitroglycerin (Nitrostat Sl) 0.4 mg UNSCH PRN SL CHEST PAIN; Start 08/29/16 at 20:30 Clonidine (Catapres) 0.1 mg UNSCH PRN PO for BP > 180/100 X 2 readings; Start 08/29/16 at 20:30 Epoetin Brandon (Epogen Inj) 10,000 units UNSCH PRN IV WITH DIALYSIS Last administered on 09/04/16 09:00; Start 08/29/16 at 20:30 Gelatin (Gelfoam 12 Mm/7 Mm Top) 1 foam UNSCH PRN TOP SEE LABEL COMMENTS; Start 08/29/16 at 20:30 Midazolam HCl (Versed Inj) 5 mg STK-MED ONCE .ROUTE Last administered on 09:50; Start 08/30/16 at 09:28; Stop 08/30/16 at 09:29; Status DC Fentanyl Citrate (fentaNYL INJ) 250 mcg STK-MED ONCE .ROUTE Last administered on 08/30/16 09:50; Start 08/30/16 at 09:28; Stop 08/30/16 at 09:29; Status DC Heparin Sodium (Porcine) (*HEPARIN INJ Periprocedural ONLY) 10,000 units STK- MED ONCE .ROUTE Last administered on 08/30/16 10:02; Start 08/30/16 at 10:02; Stop 08/30/16 at 10:03; Status DC Iohexol (OMNIPAQUE 350 INJ (Magazine Supervisor)) 48 ml STK-MED ONCE .XX Last administered on 08/30/16 11:34; Start 08/30/16 at 11:34; Stop 08/30/16 at 11:35 ; Status DC Gelatin (Gelfoam 12 Mm/7 Mm Top) 1 foam STK-MED ONCE I-ARTERIAL Last administered on 08/30/16 11:35; Start 08/30/16 at 11:35; Stop 08/30/16 at 11:36 ; Status DC Methylprednisolone Sodium Succinate (SoluMEDROL INJ) 60 mg Q12HR IV PUSH Last administered on 09/05/16 09:10; Start 08/31/16 at 09:00 Insulin Aspart (NovoLOG SUPPLEMENTAL SCALE) 1 ACHS SLIDING SCALE SQ Last administered on 09/04/16 21:25; Start 08/31/16 at 16:00 Dextrose (D50w (Vial) Inj) 25 ml UNSCH PRN IV PUSH HYPOGLYCEMIA - SEE COMMENTS ; Start 08/31/16 at 14:15 Glucagon (Glucagon Inj) 1 mg UNSCH PRN OTHER HYPOGLYCEMIA-SEE COMMENTS; Start 08/31/16 at 14:15 Glipizide (Glucotrol) 5 mg BIDAC PO Last administered on 09/05/16 09:10; Start 09/02/16 at 17:30 Metoprolol Tartrate 25 mg 25 mg BID PO Last administered on 09/02/16 20:32; Start 09/02/16 at 21:00; Stop 09/03/16 at 11:34; Status DC Vancomycin HCl 1000 mg/Sodium Chloride 250 ml @ 250 mls/hr UX LEAD IV Last administered on 09/03/16 11:09; Start 09/03/16 at 08:15; Stop 09/07/16 at 08:14 Cefazolin Sodium/ Dextrose (Ancef 2 Gm Premix) 50 ml @ 100 mls/hr UX LEAD IV Last administered on 09/03/16 11:09; Start 09/03/16 at 08:15; Stop 09/07/16 at 08:14 Epinephrine HCl (EPINEPHrine (1:10,000) INJ) 1 mg STK-MED ONCE .ROUTE ; Start at 11:29; Stop 09/03/16 at 11:30; Status DC Atropine Sulfate (Atropine Inj) 1 mg STK-MED ONCE .ROUTE ; Start 09/03/16 at 11: 30; Stop 09/03/16 at 11:31; Status DC Metoprolol Tartrate (Lopressor) 12.5 mg Q12HR PO Last administered on 09:11; Start 09/03/16 at 21:00 Midazolam HCl (Versed Inj) 5 mg STK-MED ONCE .ROUTE Last administered on 11:34; Start 09/03/16 at 11:34; Stop 09/03/16 at 11:35; Status DC Fentanyl Citrate (fentaNYL INJ) 250 mcg STK-MED ONCE .ROUTE Last administered on 09/03/16 11:35; Start 09/03/16 at 11:35; Stop 09/03/16 at 11:36; Status DC Atropine Sulfate (Atropine Inj) 1 mg STK-MED ONCE .ROUTE ; Start 09/03/16 at 11: 47; Stop 09/03/16 at 11:48; Status DC Miscellaneous (Pill Splitter) 1 ea UNSCH PRN OTHER SEE LABEL COMMENTS; Start at 12:00 Heparin Sodium (Porcine) (*HEPARIN INJ Periprocedural ONLY) 10,000 units STK- MED ONCE .ROUTE Last administered on 09/03/16 12:18; Start 09/03/16 at 12:18; Stop 09/03/16 at 12:19; Status DC Lidocaine/ Epinephrine (Xylocaine-Epi 1%-1:100,000 Inj) 20 ml STK-MED ONCE .ROUTE Last administered on 09/03/16 12:18; Start 09/03/16 at 12:18; Stop at 12:19; Status DC Sodium Chloride (NS Flush) UNSCH PRN IVF SEE PROTOCOL; Start 09/03/16 at 13:30 Heparin Sodium (Porcine) UNSCH PRN IV FLUSH SEE PROTOCOL; Start 09/03/16 at 13 :30 Pharmacy Profile Note (Coumadin Consult Pharmacy) 0 ml @ 0 mls/hr UNSCH OTHER ; Start 09/04/16 at 20:30 Warfarin Sodium (Coumadin) 2.5 mg ONCE ONCE PO Last administered on 09/04/16 22:00; Start 09/04/16 at 22:00; Stop 09/04/16 at 22:01; Status DC Patient Medication Teaching (Coumadin Booklet) 1 ONCE ONCE .XX Last administered on 09/04/16 22:00; Start 09/04/16 at 22:00; Stop 09/04/16 at 22:01 ; Status DC Warfarin Sodium (Coumadin) 5 mg ONCE@1600 ONCE PO ; Start 09/05/16 at 16:00; Stop 09/05/16 at 16:01 Warfarin Sodium (Coumadin) 3 mg DAILY@1600 PO ; Start 09/06/16 at 16:00 A/P Problem List: (1) ESRD (end stage renal disease) ICD Code: N18.6 Status: Chronic (2) HTN (hypertension) ICD Code: I10 Status: Chronic (3) DM (diabetes mellitus) ICD Code: E11.9 Status: Chronic (4) Afib ICD Code: I48.91 Status: Chronic (5) Hemorrhage of right kidney ICD Code: N28.89 Status: Acute Assessment and Plan 76 yo male with PMH of HTN, Afib on Coumadin. HLD came to the ED for evaluation of right flank pain, sharp radiating to hid buttocks getting worse. Patient is following with Dr. Allen mei for PD and is currently in training. End stage renal disease - Nephrology consulted, possible vasculitis, bronchitis inserted, continue dialysis per nephrology. - Status post PD catheter placement. Right IJ vas cath placed temporarily. 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 -s/p PermCath placed 09/05 Hemorrhage of the right kidney, possible vasculitis. - Status post Gelfoam and coil embolization of right renal artery by IR 08/30. - [facility] following. Suspecting Polyarteritis Nodosa. -Hemoglobin has been stable. Patient was started on Solu-Medrol. Continue management per call specialist. Atrial fibrillation, chronic -Loan Interviewer recommends restarting Coumadin due to patient being high risk. -Will restart Coumadin. Bradycardia -Improving. Being managed by head of digital. Type 2 diabetes mellitus - Continue to monitor, statin scale insulin, oral hypoglycemics on hold. Anemia-hemoglobin stable -status post transfusion 1 unit PRBC on 09/01. -Hemoglobin stable. Hypertension, chronic: Controlled. Continue Cardura and metoprolol. Dyslipidemia, chronic: Continue Pravastatin. DVT prophylaxis: SCDs, pharmacological prophylaxis contraindicated because of recent bleed. Discharge Planning Patient is medically clear by head of digital to be discharge home with close follow-up. Pending clearance from call specialist. Patient is on Solu-Medrol. Also dealt with case management regarding to outpatient hemodialysis. This needs to be set up for discharge. Problem Qualifiers (1) HTN (hypertension): Qualified Code: I10 - Essential hypertension (2) DM (diabetes mellitus): Rowena Napoles MD Sep 05, 2016 10:02
[2016-09-05 15:51] LABS: CRYOCRIT NONE DETECTED (NONE DETECTED)
[2016-09-05] MEDS ORDERED: WARFARIN SOD 5 MG TAB PO ONE (16:00)
[2016-09-05] MEDS ORDERED: hydrALAZINE HCL 20 MG/ML VIAL IV PUSH PRN (16:30)
--- NOTE | 2016-09-05 16:40 | HHI.NPPN ---
Subjective History of Present Illness hx of Right renal hemorrhage Additional Remarks Patient is alert, want to go home, no SOB, no abd. pain. Objective Data Data 09/04/16 09/05/16 19:00 07:00 Intake Total 890 ml 240 ml Output Total 5500 ml 350 ml Balance -4610 ml -110 ml Intake Oral 890 ml 240 ml Output Urine Total 500 ml 350 ml Hemodialysis 5000 ml Vital Signs Date Time Temp Pulse Resp B/P Pulse Ox O2 Delivery O2 Flow Rate FiO2 09/05/16 16:19 69 09/05/16 15:30 98.2 72 18 188/103 100 09/05/16 15:30 71 09/05/16 14:07 72 09/05/16 13:03 64 09/05/16 12:26 60 09/05/16 11:13 97.9 63 18 147/72 97 09/05/16 11:13 50 09/05/16 10:00 69 09/05/16 09:00 98 21 09/05/16 09:00 74 09/05/16 08:00 72 09/05/16 07:00 65 09/05/16 07:00 97.7 61 18 153/91 97 09/05/16 07:00 98 Room Air 09/05/16 06:00 70 09/05/16 05:00 70 09/05/16 04:00 98.6 60 18 145/89 96 09/05/16 04:00 65 09/05/16 03:00 70 09/05/16 02:00 64 09/05/16 01:00 66 09/05/16 00:00 98.6 60 18 145/77 96 09/05/16 00:00 62 09/04/16 23:00 64 09/04/16 22:21 21 09/04/16 22:07 98 Room Air 09/04/16 22:00 64 09/04/16 21:00 70 09/04/16 20:00 98.6 97 18 142/91 96 09/04/16 20:00 96 09/04/16 19:00 68 09/04/16 18:00 60 09/04/16 17:00 73 -: 09/04/16 0515 09/03/16 0525 Physical Exam General Appearance: Well Developed, Well Nourished Neck Neck Exam: Neck Supple Pulmonary Resp Exam: Clear Bilaterally, Breath Sounds Equal Cardiology CV Exam: Regular, Normal Sinus Rhythm Gastrointestinal/Abdomen GI Exam: Soft, Non-Tender, Bowel Sounds Present Extremeties Extremities Exam: No Edema Assessment/Plan Problem List: (1) ESRD (end stage renal disease) Plan: Patient just started training on peritoneal dialysis however he is having hemorrhage in the right kidney s/p embolization 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 Started on HD. Will need out patient HD arrangements. I spoke to [facility] at [facility]. HD done yesterday. Started on Coumadin. Patient has abnormal SPEP and following with hematology. He recently had BM Biopsy also. He will have out patient HD at [facility] in [facility], on MWF at 4.00 pm. (2) Hemorrhage of right kidney Plan: Patient is s/p embolization rt kidney Urology Dr. Villalobos he will follow as out patient (3) Afib Plan: He was on Coumadin which is being held (4) DM (diabetes mellitus) Plan: Continue to monitor BG higher on steroids (5) HTN (hypertension) Plan: Monitor blood pressure Problem Qualifiers (1) DM (diabetes mellitus): (2) HTN (hypertension): Qualified Code: I10 - Essential hypertension Lidya Villa MD Sep 05, 2016 16:40
[2016-09-05] MEDS ORDERED: METO25TA3 PO (18:12)
[2016-09-05] MEDS ORDERED: SENN1TAB PO (18:12)
[2016-09-05] MEDS ORDERED: PRED20 PO (18:12)
--- NOTE | 2016-09-05 18:13 | HHI.DCPOC ---
Discharge Care Plan Diagnosis: (1) Afib (2) ESRD (end stage renal disease) (3) Hemorrhage of right kidney (4) HTN (hypertension) (5) DM (diabetes mellitus) Goals to Promote Your Health * To prevent worsening of your condition and complications * To maintain your health at the optimal level Directions to Meet Your Goals Take your medications as prescribed Follow your dietary instruction Follow activity as directed Keep your appointments as scheduled Take your immunizations and boosters as scheduled If your symptoms worsen call your PCP, if no PCP go to Urgent Care Center or Emergency Room Smoking is Dangerous to Your Health. Avoid second hand smoke Call the 24-hour hour crisis hotline for domestic abuse at Rowena Napoles MD Sep 05, 2016 18:12
--- NOTE | 2016-09-05 18:17 | HHI.DS ---
Discharge Summary Admission Date Aug 29, 2016 at 11:51 Admitting Diagnosis RT RENAL HEMORRHAGE, S/P COUMADIN REVERSAL, S/P HYPERKALEMIA TREAT (1) ESRD (end stage renal disease) ICD Code: N18.6 (2) HTN (hypertension) ICD Code: I10 (3) DM (diabetes mellitus) ICD Code: E11.9 (4) Afib ICD Code: I48.91 (5) Hemorrhage of right kidney ICD Code: N28.89 Brief History - From Admission 76 yo male with PMH of HTN, Afib on coumadin. HLD came to the ED for evaluation of right flank pain , sharp radiating to hid buttocks getting worse . 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 Movement and deep inspiration worsened the pain .Pain is improved with meds given in the ED. Denies any cp, sob, palpitations , n/v/d/c associated. No hematuria , no urinary complaints. 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 He has PD catheter in his left lower. No overt bleeding. CBC/BMP: 09/04/16 0515 09/03/16 0525 Significant Findings Laboratory Tests Test 09/03/16 09/04/16 05:25 05:15 Red Blood Count 2.76 MIL/MM3 2.67 MIL/MM3 (4.50-5.90) (4.50-5.90) Hemoglobin 8.5 GM/DL 8.0 GM/DL (13.0-17.0) (13.0-17.0) Hematocrit 24.8 % 24.2 % (39.0-51.0) (39.0-51.0) Platelet Count 93 TH/MM3 97 TH/MM3 (150-450) (150-450) Neutrophils (%) (Auto) 90.3 % (16.0-70.0) Lymphocytes (%) (Auto) 5.6 % (9.0-44.0) Lymphocytes # (Auto) 0.3 TH/MM3 (1.0-4.8) Neutrophils % (Manual) 88 % (16-70) Lymphocytes % 6 % (9-44) Nucleated Red Blood Cells 1 /100 WBC (0-0) Platelet Estimate LOW (NORMAL) Polychromasia 2.9 % (0.0-1.9) Spherocytes 1+ (NORMAL) Acanthocytes 1+ (NORMAL) Prothrombin Time 13.3 SEC (9.8-11.6) Sodium Level 133 MEQ/L (136-145) Chloride Level 97 MEQ/L (98-107) Blood Urea Nitrogen 98 MG/DL (7-18) Creatinine 4.77 MG/DL (0.60-1.30) Estimat Glomerular Filtration 12 ML/MIN (>89) Rate Random Glucose 185 MG/DL (74-106) Calcium Level 8.3 MG/DL (8.5-10.1) Phosphorus Level 6.8 MG/DL (2.5-4.9) Albumin 2.6 GM/DL (3.4-5.0) PE at Discharge GENERAL: in NAD SKIN: right IJ HEAD: Normocephalic. EYES: No scleral icterus. No injection or drainage. NECK: Supple, trachea midline. No JVD or lymphadenopathy. CARDIOVASCULAR: Regular rate and rhythm without murmurs, gallops, or rubs. RESPIRATORY: Breath sounds equal bilaterally. No accessory muscle use. GASTROINTESTINAL: Abdomen soft, non-tender, nondistended. permacath MUSCULOSKELETAL: No cyanosis, or edema. BACK: Nontender without obvious deformity. No CVA tenderness. Pt Condition on Discharge: Good Discharge Disposition: Discharge Home Discharge Instructions DIET: Follow Instructions for: Heart Healthy Diet, Diabetic Diet, Coumadin ( Warfarin) Diet, Renal Failure Diet Activities you can perform: Regular-No Restrictions Rowena Napoles MD Sep 05, 2016 18:17
[2016-09-06] MEDS ORDERED: WARFARIN SOD 3 MG TAB PO SCH (16:00)
== END 2016-09-05 18:47 | disposition home or self-care (01) | DRG 674 ==
LOC: PHED 07:40 → PHEDA 11:51 → HCIS 17:31
PROVIDERS: ADMIT Family Medicine; ATTEND Family Medicine
PROC: 04L93DZ Occlusion of Right Renal Artery with Intraluminal Device, Percutaneous Approach (ICD-10-PCS; principal; 2016-08-30)
PROC: 05HM33Z Insertion of Infusion Device into Right Internal Jugular Vein, Percutaneous Approach (ICD-10-PCS; 2016-08-30)
PROC: 5A1D60Z (ICD-10-PCS; 2016-08-30)
PROC: 05HM33Z Insertion of Infusion Device into Right Internal Jugular Vein, Percutaneous Approach (ICD-10-PCS; 2016-09-03)
DX: N28.89 Other specified disorders of kidney and ureter (principal); M30.0 Polyarteritis nodosa; I12.0 Hypertensive chronic kidney disease with stage 5 chronic kidney disease or end stage renal disease; E11.22 Type 2 diabetes mellitus with diabetic chronic kidney disease; E87.5 Hyperkalemia; I48.2 Chronic atrial fibrillation; R00.1 Bradycardia, unspecified; N18.6 End stage renal disease; Z79.84 Long term (current) use of oral hypoglycemic drugs; I25.10 Atherosclerotic heart disease of native coronary artery without angina pectoris; Z95.1 Presence of aortocoronary bypass graft; Z79.01 Long term (current) use of anticoagulants; K21.9 Gastro-esophageal reflux disease without esophagitis; Z99.2 Dependence on renal dialysis; E78.5 Hyperlipidemia, unspecified; N40.0 Benign prostatic hyperplasia without lower urinary tract symptoms; D64.9 Anemia, unspecified
CPT/HCPCS: 36253; 36430; 36556; 36558; 37243; 74176; 74177; 76937; 77001; 80048; 80053; 80069; 80074; 81001; 82595; 82948; 83690; 84132; 84165; 85007; 85025; 85027; 85610; 85652; 85730; 86021; 86038; 86140; 86160; 86850; 86900; 86901; 86920; 90935; 94664; 96361; 96365; 96374; 96375; 99152; 99153; C1750; C1752; C1769; C1887; C1894; C9132; J0171; J0461; J0690; J1170; J1580; J1644; J1815; J1885; J2250; J2405; J2930; J3010; J3370; J3430; J7030; J7050; J7611; P9016; Q4081; Q9967